=== PATIENT | male | born 1975 | race Caucasian/White ===

== ENCOUNTER 2017-02-12 13:24 | Inpatient (IN) | payer BC, OTHER ==
[2017-02-12] VITALS (8 sets, daily range): BP systolic 129–158; BP diastolic 93–100
[~2017-02-12] VITALS: Ht 172.7 cm; Wt 72.6 kg
--- NOTE | ~2017-02-12 | H ---
[facility] [place] [address] HISTORY AND PHYSICAL Name: JE EVANS Room #: 241-P ADM IN M.R.#: [id number] Admission: 02/12/17 Attend Phys: Kait Gil MD Discharge: Date of : 79 Report #: [id number] THIS REPORT FOR: //name// CC: Kait Kebede REASON FOR PRESENTATION: Abdominal pain. HISTORY OF PRESENT ILLNESS: This is a 41-year-old with past medical history of alcohol abuse. He was admitted about a month ago for the same symptoms. He presented with abdominal pain, mid epigastric, radiating to the back. This started a few days ago and started to worsen in the last few hours before his presentation to the emergency room. No fever or chills associated with the abdominal pain. He did have some nausea. No vomiting. No hematochezia, no melena. No relieving factors. He admitted to excessive alcohol drinking in the last few weeks. Specifically, he mentioned that he has been taking about half a pint of amanda every day. Reviewing the patient's medical history, it does look like that he was admitted with all complications related to alcohol abuse including cholecystitis, pancreatitis with leukopenia. He had an extensive GI workup with EGD and the liver biopsy. The liver biopsy was consistent with what was described in the history as fatty liver with steatohepatitis. He also had an EGD done during his previous admission and this revealed severe esophagitis. Of note, this is the fact that the patient had a very high blood sugar in the last admission. He was managed appropriately with insulin; however, his blood sugar normalized and he did not require any further insulin after his dismissal. PAST MEDICAL HISTORY: 1. Steatohepatitis. 2. Alcohol abuse. 3. Pancreatitis. 4. Leukopenia related to alcohol abuse. 5. Post-appendectomy. 6. Hyperlipidemia. 7. Severe esophagitis and gastritis. 8. Hypertriglyceridemia. 9. History of thrombocytopenia. MEDICATIONS: 1. Levofloxacin. 2. Folic acid. 3. Pantoprazole. ALLERGIES: MEPERIDINE. 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 He abuses half a pint of amanda every day. [facility] [address] [place] [address] HISTORY AND PHYSICAL Name: JE EVANS Room #: [facility]P [facility] IN ..#: [id number] Admission: 02/12/17 Attend Phys: Kait Gil MD Discharge: Date of : 79 Report #: [id number] FAMILY HISTORY: No known chronic medical problems in the family. REVIEW OF SYSTEMS: GENERAL: Significant for weakness. GASTROINTESTINAL: Significant for abdominal pain, nausea, loss of appetite. PULMONARY: No cough or hemoptysis. CARDIOVASCULAR: No chest pain or palpitation. GENITOURINARY: No frequency, no urgency. MUSCULOSKELETAL: Occasional back pain. NEUROLOGICAL: No headache, no dizziness, no seizures. PHYSICAL EXAMINATION: GENERAL: The patient was alert, oriented. VITAL SIGNS: Pulse rate was 114, temperature was 37.3. HEAD AND NECK: Dry mucous membrane. CHEST: Decreased air entry bilaterally. CARDIOVASCULAR: Tachycardic. ABDOMEN: Tenderness the epigastric area. LOWER EXTREMITIES: No edema. LABORATORY VALUES: Reviewed. He has a widened anion gap. AST is elevated at 120, ALT is elevated at 359. Lipase is within normal. CBC showed a hemoconcentrated sample. Blood gas was consistent with respiratory alkalosis and anion gap metabolic acidosis. Serum alcohol level was elevated at 185. Serum acetone and beta hydroxybutyrate are pending. Abdomen and pelvic CT were reviewed, those showed the diffuse fatty infiltration of the liver. ASSESSMENT, IMPRESSION, PLAN: 1. Alcohol abuse. 2. Abdominal pain. 3. Severe esophagitis in the past. 4. Widened anion gap acidosis. 5. Respiratory alkalosis. 6. Remote history of pancreatitis, fatty liver, esophagitis. 7. Admission to the ICU. 8. Alcohol withdrawal protocol. 9. IV fluid. 10. Routine ICU care. 11. Continue to senior counsel about alcohol abuse. 12. Electrolyte protocol. 13. Pain control. 14. DTs precautions. 15. Watch his abdominal pain for now. He seems to be tender in the epigastric area; however, his lipase and his CT were nonsignificant. He had an EGD done in the past and there was a mention of severe esophagitis and gastritis. We will place on PPI and sucralfate for now. [address] [address] HISTORY AND PHYSICAL Name: JE EVANS Room #: 241-P [facility] IN M.R.#: [id number] Admission: 02/12/17 Attend Phys: Kait Gil MD Discharge: Date of : 79 Report #: [id number] 16. If needed, we will obtain a repeat EGD by the gastroenterology team to evaluate the healing process as there was a suspicion of a viral entity causing those changes in his stomach in the last admission. <ELECTRONICALLY SIGNED> By: Kait Gil MD 02/13/17 1223 1541 2107 Kait Gil MD /nt
--- NOTE | ~2017-02-12 | HC ---
[facility] [place] [address] CONSULTATION Name: JE EVANS Room #: 454-P ADM IN M.R.#: [id number] Admission: 02/12/17 Attend Phys: Kait Gil MD Discharge: Date of : 79 Report #: [id number] THIS REPORT FOR: //name// CC: MICH Kebede REASON FOR CONSULTATION: The patient is a 41-year-old male with history of alcohol abuse and severe abdominal pain. HISTORY OF PRESENT ILLNESS: This patient had a previous admission to [facility] earlier this year. He was seen by my associate, Dr. Gustavo Zepeda. Actually, he has had 2 previous admissions already this year. Both admissions were for abdominal pain. He admittedly has an alcohol problem. Not many people know about his alcohol issue, but he is willing to make changes at this point in time. In summary, he has had bouts of abdominal pain. He has had previous CAT scans. He has had an elevated lipase, which may or may not be related to pancreatitis. He all also has had a liver biopsy and elevated ferritin. Pattern was suggestive of a hemochromatosis; however, genetic markers were not diagnostic for hemochromatosis. 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 However, he does not have the mutations consistent with hereditary hemochromatosis. Also, earlier this year, he had an upper endoscopy and was found to have severe esophagitis. Biopsies were nondiagnostic and a viral etiology is not identified. Biopsies negative for celiac disease and H. pylori as well. The patient reported he had been doing well once again on this occasion. However, 2 days ago, he started with severe abdominal pain. He freely admits that he has been drinking too much. His alcohol of choice is amanda. He has developed a mid to upper abdominal pain. The pain was sharp and burning in character. Over the ensuing day or two, the pain greatly intensified. He had some nausea and dry heaves, but not have any vomiting. He did not have any rectal bleeding. He does not report any fever or chills. Due to the severe pain, he presented to [facility] yesterday where he was seen and evaluated. He was found to have a lactic acid of 8. A CT scan was done, which revealed fatty infiltrates of liver. There was concern for ischemic gut, but acute findings were not noted in the abdomen. It is noted that the CAT scan was done with IV contrast. Overnight, his pain is improved, but not resolved. His lactic acid this morning is normal. The patient also reported yesterday here in the hospital that he had a brown, nonbloody stool. PAST MEDICAL HISTORY: He has steatohepatitis noted by biopsy, history of [facility] [address] [place] [address] CONSULTATION Name: JE EVANS Room #: 454-P [facility] IN M.R.#: [id number] Admission: 02/12/17 Attend Phys: Kait Gil MD Discharge: Date of : 79 Report #: [id number] alcohol abuse as noted. Records indicate he has had pancreatitis, but review of labs earlier this year did not reveal a striking elevation of lipase. The highest lipase was 1372. On this admission, it was normal. He has also had leukopenia in the past and once again he is leukopenic, thought to be related to alcohol. He has had hyperlipidemia. He has had esophagitis. He has had hypertriglyceridemia. He also has had thrombocytopenia and platelets are 99,000 this admission. PAST SURGICAL HISTORY: Appendectomy. USUAL HOME MEDICINES: He takes alprazolam 0.25 mg as needed for anxiety, folic acid 1 mg daily, hyoscyamine 0.125 mg daily, Levaquin 750 mg daily for 7 days and he is no longer using that, multivitamins, ondansetron 4 mg every 8 hours as needed for nausea; oxycodone 5 mg every 6 hours, he was given only 20 tablets. He uses omeprazole intermittently. He also takes ranitidine and sucralfate. He takes fenofibrate and atorvastatin for his lipidemia. In addition to the Xanax, he also uses citalopram. He does use nonsteroidals occasionally, but not on a daily basis. FAMILY HISTORY: No family history of colon cancer, ulcer disease or liver disease. SOCIAL HISTORY: He is single, lives in his own home. 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 He smokes half pack of cigarettes per day. He drinks amanda daily. REVIEW OF SYSTEMS: GENERAL: No change of weight, fever or chills. CENTRAL NERVOUS SYSTEM: No focal weakness, numbness, loss of consciousness, seizure or strokes. ENT: No change in vision or hearing or sores in the mouth. PULMONARY: Although he is a smoker, no cough, pneumonia or tuberculosis. CARDIOVASCULAR: No chest pain, chest tightness, or known heart disease. GASTROINTESTINAL: Esophagitis and gastritis, questionable pancreatitis, steatohepatitis, no diarrhea or rectal bleeding or constipation. GENITOURINARY: Without dysuria, pyuria. MUSCULOSKELETAL: No arthralgias or myalgias. SKIN: Without rashes. PSYCHIATRIC: He has been treated for anxiety. He has been treated by family practitioner, he has not seen a psychiatrist. HEMATOLOGIC: No bleeding, bruising, or malignancy, although he has had thrombocytopenia and leukopenia probably related to alcohol. PHYSICAL EXAMINATION: GENERAL: Well-developed, well-nourished male who is awake, alert and oriented, no acute distress. He is very tentative and seemed to be interested in improving his situation. [facility] [address] [place] [address] CONSULTATION Name: JE EVANS Room #: 454-P [facility] IN .R.#: [id number] Admission: 02/12/17 Attend Phys: Kait Gil MD Discharge: Date of : 79 Report #: [id number] VITAL SIGNS: This morning blood pressure 139/89, pulse rate of 80. HEENT: He is anicteric. Pupils equal and round. Oropharynx clear. NECK: Supple. CHEST: Clear. HEART: Regular rate and rhythm, normal S1 and S2. ABDOMEN: Normal bowel sounds, soft. Moderate tenderness diffusely across the upper abdomen. No rebound or rigidity. RECTAL: Not done. EXTREMITIES: Without cyanosis, clubbing, edema. NEUROLOGIC: Oriented to person, place and time. Moves all 4 extremities well. ASSESSMENT: 1. Acute abdominal pain, improved. 2. Alcohol abuse. 3. Esophagitis. 4. Lactic acidosis, improved. 5. Hyperlipidemia. 6. Anxiety. RECOMMENDATIONS: 1. Continue to monitor abdominal pain. He has been seen by Dr. Mahajan and does not have an acute abdomen at this point in time. 2. PPI twice daily. 3. Upper endoscopy at some point. The patient is actually planned to have a followup endoscopy by Dr. Zepeda to ensure healing of his esophagitis. We will see how he does this admission. If he does not have improvement of difficulty, we may proceed this admission, although the interval is shorter than initially recommended. 4. multimedia services coordinator with regards to dealing with his alcohol abuse, in particular getting him involved in structured program such as AA. 5. Agree with clear liquids to start today. 6. Monitor liver function studies. 7. Monitor for withdrawal. By: 0825 [id number] Demarcus Ferris MD /nt
--- NOTE | ~2017-02-12 | HC ---
[facility] [place] [address] CONSULTATION Name: JE EVANS Room #: 241-P ADM IN M.R.#: [id number] Admission: 02/12/17 Attend Phys: Kait Gil MD Discharge: Date of : 79 Report #: [id number] THIS REPORT FOR: //name// CC: Kait Kebede DATE OF SERVICE: 02/12/2017 ATTENDING PHYSICIAN: Dr. Gil. CONSULTING PHYSICIAN: Donavan Mahajan MD REASON FOR CONSULTATION: Abdominal pain, elevated lactate. HISTORY OF PRESENT ILLNESS: This is a 41-year-old alcoholic male patient who was seen in the [facility] with epigastric abdominal pain and nausea. His pain has been ongoing over the past couple days, relatively unchanged. He had minimal relief with the IV pain medication that was given to him. The patient was admitted to the hospital approximately 1 month ago and was felt to have esophagitis, possibly viral. He underwent a liver biopsy and was found to have steatohepatitis. He admits to drinking a half pint of amanda daily and he states that over the past several days, his alcohol use has been more than usual. He has also not taken in much food over the past few days. His lactate was 6.9 initially. After receiving 2 liters of IV fluids, the patient's lactate was elevated at 8.0. With his complaints, I have been asked to see the patient for further evaluation and treatment. PAST MEDICAL HISTORY: Significant for hypercholesterolemia and esophagitis, gastritis. PAST SURGICAL HISTORY: Includes laparoscopic appendectomy. HOME MEDICATIONS: Lipitor, fenofibrate, Xanax, Zantac, Carafate, Levsin. ALLERGIES: DEMEROL. FAMILY HISTORY: Significant for diabetes mellitus in both his grandmothers. SOCIAL HISTORY: The patient smokes half a pack of cigarettes daily over the past 25 years and admits to drinking 1 half pint of amanda daily over the past year. Prior to that, his alcohol use was not as heavy. 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 REVIEW OF SYSTEMS: As per history of present illness. In addition: GENERAL: The patient does report a 20-pound weight loss over the past year. Denies fever or chills. [facility] [address] [place] [address] CONSULTATION Name: JE EVANS [facility] Room #: 241-P [facility] IN .R.#: [id number] Admission: 02/12/17 Attend Phys: Kait Gil MD Discharge: Date of : 79 Report #: [id number] HEENT: Denies changes in taste, vision, hearing, or smell. RESPIRATORY: Denies shortness of breath, COPD or asthma. CARDIOVASCULAR: Denies chest pain or palpitations. GASTROINTESTINAL: As per history of present illness. Denies bright red blood per rectum. GENITOURINARY: Denies dysuria, urgency, increased urinary frequency or hematuria. MUSCULOSKELETAL: Denies myalgia, arthralgia or arthritis. NEUROLOGIC: Denies headaches, numbness or tingling. PSYCHIATRIC: Denies depression, anxiety or suicidal ideations. SKIN AND INTEGUMENTARY: Denies new skin lesions, rashes, or moles. ENDOCRINE: Denies polydipsia, polyuria, heat or cold intolerance. HEMATOLOGIC: Denies easy bleeding, bruising or anemia. All other review of systems is negative. PHYSICAL EXAMINATION: VITAL SIGNS: Temperature 99.2, blood pressure 140/94, pulse 100, respirations 14. Height 5 feet 8 inches and weight 160 pounds. GENERAL: This is a 41-year-old male patient who appears to be in mild distress (his appearance changed after discussion - see below). HEENT: Atraumatic, normocephalic with moist mucosal membranes. He has no scleral icterus. NECK: Supple, no appreciable lymphadenopathy. Trachea is midline. CHEST: Clear bilaterally. No crackles or wheezes. CARDIOVASCULAR: Regular rate and rhythm, S1, S2. ABDOMEN: Tender to palpation in the lower epigastrium/infraumbilical area. He otherwise has diffuse abdominal pain with no rebound and mild voluntary guarding. He had no palpable masses, no appreciable hernias and mild hepatomegaly. GENITOURINARY: Normal external male genitalia. EXTREMITIES: No clubbing, cyanosis or edema. NEUROLOGIC: Cranial nerves 2-12 grossly intact. PSYCHIATRIC: Anxious but answering questions appropriately. SKIN AND INTEGUMENTARY: No acute inflammatory changes, rashes, lesions or jaundice is present. LABORATORY DATA: CBC shows a white blood cell count 4.5, hemoglobin 15.2, hematocrit 43.6 and platelets 158. His electrolytes showed a sodium 139, potassium 3.7, chloride 97, CO2 20, BUN 11, creatinine 0.9 and glucose 102. His AST and ALT were elevated at 120 and 359 respectively. Bilirubin was normal at 1.0 and alkaline phosphatase was mildly elevated at 135. His lipase was normal at 141. His alcohol level was 185 (normal is less than 10 mg/dL). Ammonia level was in the normal arrange. Lactates were elevated initially at 6.9 and most recently at 8.0 at 6:45 this evening. [facility] [address] [place] [address] CONSULTATION Name: JE EVANS Room #: 241-P [facility] IN [facility].#: [id number] Admission: 02/12/17 Attend Phys: Kait Gil MD Discharge: Date of : 79 Report #: [id number] RADIOLOGIC STUDIES: CT of the abdomen and pelvis showed diffuse fatty infiltration of the liver with no evidence for pancreatitis or focal bowel inflammatory changes, no free air, abscess or acute findings. IMPRESSION AND PLAN: This is a 41-year-old alcoholic male patient with a history of hypercholesterolemia, esophagitis/gastritis (secondary to his alcoholism) and steatohepatitis. He has had a severe, constant abdominal pain over the past 2 days and an elevated lactate that did not improve with hydration. His white blood cell count was normal and CT showed no acute findings. His exam was difficult as he may be guarding from either pain or drug-seeking behavior. In addition, his lactate is an unreliable test as it may be elevated due to his inability to process (secondary to biopsy proven steatohepatitis). We discussed the pathophysiology and natural history of acute bowel/mesenteric ischemia and peptic ulcer disease as well as the treatment alternatives and potential surgical options for both. Ischemic bowel must be ruled out. I will plan to redraw a lactate level and reexamine the patient, following closely. It should be noted that the patient's attitude seemed to change after my rick discussion with him regarding his alcohol use and potential need for surgery and bowel resection. He seemed to exhibit less discomfort and pain. I sincerely appreciate the opportunity to participate in the care of this patient and I will leave further recommendations and orders in the electronic medical record as appropriate. Thank you very much. I will follow along closely. <ELECTRONICALLY SIGNED> By: Donavan Mahajan MD, FACS 02/13/17 1018 2105 0030 Donavan Mahajan MD, FACS /nt
--- NOTE | ~2017-02-12 | EKG ---
[address] [address] ELECTROCARDIOGRAM REPORT Name: NATHANJE Walker RAYMUNDO Room #: 454-P ADM IN M.R.#: [id number] Admission: 02/12/17 Attend Phys: Kait Gil MD Discharge: Date of : 79 Report #: [id number] THIS REPORT FOR: //name// [facility] ED Test Date: 2017-02-12 Test Time: 14:16:16 Pat Name: JE EVANS Department: Room: [facility] Gender: M Neuropsychiatric Aide: Ancelmo SHETTY : 1975 Requested By: Chencho Killian Order Number: [id number] MD: Gary Fernandez Measurements Intervals [place] Rate: 95 P: 79 DE: 133 QRS: 68 QRSD: 96 T: 51 QT: 362 QTc: 455 Interpretive Statements Sinus rhythm Left atrial enlargement Electronically Signed On 02-13-2017 22:24:38 CDT by Gary Fernandez [email or web address] <ELECTRONICALLY SIGNED> By: Gary Fernandez MD 02/13/17 2224 1416 1416 MD VIRGINIA Hussein
[~2017-02-12 13:24] MED LIST: CARAFATE 1 GM TA1 G1 PO; FENOFIBRATE200 MG PO; FOLIC ACID 1 MG1 MG PO; HYDROCODONE-AP1 EAC6 PO; HYOSCYAMINE0.125 M1 SL; LEVAQUIN 750 M750 MG PO; LIPITOR10 MG PO; MULTIVITAMINS1 EAC7 PO; ONDANSETRON HCL4 M2 PO; OXYCODONE HCL 55 MG PO; PROTONIX40 M1 PO; ROXICODONE5 M2 PO; VALACYCLOVIR500 MG PO; XANAX 0.25 MG0.25 MG PO; ZANTAC 150MG T150 MG PO
[2017-02-12 13:49] LABS: HEMATOCRIT 43.6 % (42.0-52.0); HEMOGLOBIN 15.2 gm/dL (14.0-18.0); MCH 31.1 pg (26.0-34.0); MCHC 34.9 g/dL (28.0-37.0); MCV 89.1 fL (80.0-100.0); PLATELET COUNT 158 thou/uL (150-400); WBC 4.5 thou/uL (4.0-11.0)
[2017-02-12 13:53] LABS: CALCIUM 8.2 mg/dL (8.5-10.1); CREATININE 0.9 mg/dL (0.7-1.3); POTASSIUM 3.7 mmol/L (3.5-5.1)
[2017-02-12 13:54] LABS: MANUAL DIFF YES
[2017-02-12 13:58] LABS: ALBUMIN 4.4 g/dL (3.4-5.0); TOTAL PROTEIN 7.2 g/dL (6.4-8.2)
[2017-02-12 14:17] LABS: ABSOLUTE NEUTROPHILS 1.4 thou/uL (1.4-8.2); TOTAL CELL COUNT 100
[2017-02-12 14:32] LABS: ABG SAMPLE TYPE VENOUS; BE(vivo) -1.9 mmol/L (-2 to +3); HCO3 19.1 mmol/L (22.0-26.0); O2(CT) 19.6 mL/dL (15.0-23.0); O2Hb VENOUS 93.9 (65.0-85.0); PCO2 VENOUS 24.1 mmHg (41.0-51.0); PO2 VENOUS 121.7 mmHg (35.0-45.0); sO2 VENOUS 98.8 % (65.0-85.0); tCO2 19.8 mmol/L (24.0-30.0)
[2017-02-12 14:33] LABS: LACTATE 6.91 mmol/L (0.5-2.0); STICK SITE LINE
[2017-02-12 15:03] LABS: URINE BILIRUBIN NEGATIVE (Negative); URINE BLOOD 1+ (Negative); URINE COLOR YELLOW; URINE GLUCOSE-RANDOM* NEGATIVE (Negative); URINE KETONES TRACE (Negative); URINE LEUKOCYTES-REFLEX NEGATIVE (Negative); URINE PROTEIN (DIPSTICK) 1+ (Negative); URINE UROBILINOGEN 0.2 E.U./dl (0.2-1.0)
[2017-02-12 15:09] LABS: CASTS None Seen /LPF (None Seen); SQUAMOUS None Seen /LPF (0-3); URINE RBC 3-10 Few /HPF (0-2); URINE WBC-REFLEX 0-5 Rare /HPF (0-5)
[2017-02-12 15:10] LABS: CRYSTALS None Seen /LPF (None Seen)
[2017-02-12 16:13] LABS: AMP/METHAMP Negative (Negative); BARBITURATES Negative (Negative); BENZODIAZEPINES Negative (Negative); COCAINE Negative (Negative); METHADONE Negative (Negative); OPIATES POSITIVE (Negative); PCP Negative (Negative)
[2017-02-12 16:14] LABS: THC Negative (Negative)
[2017-02-12 16:45] LABS: FOLIC ACID 10.2 ng/mL (8.6-58.9)
[2017-02-12 19:54] LABS: APTT 27.5 Seconds (24.5-32.8); INR 1.1; PROTIME 11.4 Seconds (9.3-11.4)
[2017-02-13] VITALS (18 sets, daily range): BP systolic 121–169; BP diastolic 79–111
[2017-02-13 05:54] LABS: MAGNESIUM 1.4 mg/dL (1.8-2.4); PHOSPHORUS 2.4 mg/dL (2.5-4.9)
[2017-02-13 07:03] LABS: HEMATOCRIT 39.1 % (42.0-52.0); HEMOGLOBIN 13.3 gm/dL (14.0-18.0); MCH 30.5 pg (26.0-34.0); MCHC 33.9 g/dL (28.0-37.0); RBC 4.35 mil/uL (4.50-6.00); RDW 14.1 % (10.5-14.5); WBC 3.4 thou/uL (4.0-11.0)
[2017-02-13 07:12] LABS: CALCIUM 7.6 mg/dL (8.5-10.1); CREATININE 0.7 mg/dL (0.7-1.3)
[2017-02-13 07:17] LABS: ALBUMIN 3.6 g/dL (3.4-5.0); TOTAL BILIRUBIN 1.5 mg/dL (<0.1-1.0); TOTAL PROTEIN 6.3 g/dL (6.4-8.2)
[2017-02-13 07:26] LABS: POTASSIUM 3.1 mmol/L (3.5-5.1)
[2017-02-13 08:23] LABS: ABG SAMPLE TYPE ARTERIAL; BE(vivo) 1.9 mmol/L (-2 to +3); HCO3 25.9 mmol/L (22.0-26.0); LACTATE 1.16 mmol/L (0.5-2.0); O2(CT) 18.6 mL/dL (15.0-23.0); O2Hb 94.4 % (92.0-98.0); PCO2 38.4 mmHg (35.0-45.0); PO2 79.8 mmHg (80.0-100.0); STICK SITE R.RADIAL; pH 7.446 (7.360-7.450); sO2 96.3 % (92.0-98.0)
[2017-02-14 03:59] VITALS: BP 133/94
[2017-02-14 06:22] LABS: HEMATOCRIT 38.7 % (42.0-52.0); HEMOGLOBIN 13.3 gm/dL (14.0-18.0); MCH 30.8 pg (26.0-34.0); MCHC 34.4 g/dL (28.0-37.0); MCV 89.6 fL (80.0-100.0); RBC 4.31 mil/uL (4.50-6.00); RDW 14.4 % (10.5-14.5); WBC 3.3 thou/uL (4.0-11.0)
[2017-02-14 06:32] LABS: ALBUMIN 3.7 g/dL (3.4-5.0); CALCIUM 8.8 mg/dL (8.5-10.1); CREATININE 0.8 mg/dL (0.7-1.3); POTASSIUM 3.2 mmol/L (3.5-5.1); TOTAL BILIRUBIN 1.3 mg/dL (<0.1-1.0); TOTAL PROTEIN 6.5 g/dL (6.4-8.2)
[2017-02-14 07:22] VITALS: BP 135/96
[2017-02-14 11:15] VITALS: BP 125/90
[2017-02-14 15:36] VITALS: BP 131/91
[2017-02-14 19:45] VITALS: BP 149/96
[2017-02-15 03:55] VITALS: BP 138/97
[2017-02-15 06:09] LABS: ABSOLUTE NEUTROPHILS 1.5 thou/uL (1.4-8.2); BASOPHILS 0.7 % (0.0-2.0); EOSINOPHILS 10.2 % (0.0-3.0); HEMATOCRIT 37.8 % (42.0-52.0); HEMOGLOBIN 12.7 gm/dL (14.0-18.0); LYMPHOCYTES 35.8 % (24.0-44.0); MCH 30.7 pg (26.0-34.0); MCHC 33.7 g/dL (28.0-37.0); MCV 90.9 fL (80.0-100.0); MONOCYTES 5.6 % (1.0-8.0); PLATELET COUNT 102 thou/uL (150-400); POLYS 47.7 % (36.0-66.0); RBC 4.15 mil/uL (4.50-6.00); RDW 14.5 % (10.5-14.5); WBC 3.1 thou/uL (4.0-11.0)
[2017-02-15 06:16] LABS: MANUAL DIFF NO
[2017-02-15 06:24] LABS: ALBUMIN 3.5 g/dL (3.4-5.0); CALCIUM 8.7 mg/dL (8.5-10.1); CREATININE 0.8 mg/dL (0.7-1.3); POTASSIUM 3.3 mmol/L (3.5-5.1); TOTAL BILIRUBIN 1.2 mg/dL (<0.1-1.0); TOTAL PROTEIN 6.5 g/dL (6.4-8.2)
[2017-02-15 07:24] VITALS: BP 139/97
[2017-02-15 12:50] VITALS: BP 136/97
[2017-02-15 16:50] VITALS: BP 132/85
[2017-02-15 20:27] VITALS: BP 154/108
[2017-02-16 04:26] VITALS: BP 123/89
[2017-02-16 05:52] LABS: EOSINOPHILS 7.9 % (0.0-3.0); HEMATOCRIT 36.4 % (42.0-52.0); HEMOGLOBIN 12.4 gm/dL (14.0-18.0); LYMPHOCYTES 30.3 % (24.0-44.0); MCH 30.8 pg (26.0-34.0); MCV 90.7 fL (80.0-100.0); MONOCYTES 5.9 % (1.0-8.0); PLATELET COUNT 121 thou/uL (150-400); POLYS 54.9 % (36.0-66.0); RBC 4.01 mil/uL (4.50-6.00); RDW 14.1 % (10.5-14.5); WBC 3.6 thou/uL (4.0-11.0)
[2017-02-16 06:00] LABS: MANUAL DIFF NO
[2017-02-16 06:09] LABS: ALBUMIN 3.5 g/dL (3.4-5.0); CALCIUM 8.8 mg/dL (8.5-10.1); CREATININE 0.8 mg/dL (0.7-1.3); MAGNESIUM 1.7 mg/dL (1.8-2.4); POTASSIUM 3.7 mmol/L (3.5-5.1); TOTAL PROTEIN 6.4 g/dL (6.4-8.2)
[2017-02-16 07:38] VITALS: BP 123/82
[2017-02-16] MEDS ORDERED: VITAMIN B-1100 M1 PO (09:00)
[2017-02-16] MEDS ORDERED: XANAX 0.25 MG0.25 MG PO (09:00)
[2017-02-16] MEDS ORDERED: ROXICODONE5 M2 PO (09:00)
[2017-02-16] MEDS ORDERED: ONDANSETRON HCL4 M2 PO (09:00)
[2017-02-16] MEDS ORDERED: PROTONIX40 M1 PO (09:00)
[2017-02-16 11:01] VITALS: BP 134/89
[2017-02-16 11:18] VITALS: BP 134/89
== END 2017-02-16 14:04 | disposition home or self-care (01) | DRG 392 ==
LOC: ER 13:24 → 4W 15:24 → EROBS 15:24 → ICU 17:29 → 4W 02-13 15:02
PROVIDERS: Hospitalist; Nurse Practitioner Family; Physician Assistant; Surgery
DX: K20.9 Esophagitis, unspecified (principal); E87.2 Acidosis; E87.3 Alkalosis; K70.10 Alcoholic hepatitis without ascites; K29.20 Alcoholic gastritis without bleeding; E78.1 Pure hyperglyceridemia; K75.81 Nonalcoholic steatohepatitis (NASH); E88.89 Other specified metabolic disorders; F41.9 Anxiety disorder, unspecified; E78.5 Hyperlipidemia, unspecified; E78.00 Pure hypercholesterolemia, unspecified; F10.10 Alcohol abuse, uncomplicated; F17.210 Nicotine dependence, cigarettes, uncomplicated; D69.6 Thrombocytopenia, unspecified; E87.6 Hypokalemia; Y90.6 Blood alcohol level of 120-199 mg/100 ml; Z87.11 Personal history of peptic ulcer disease; Z71.41 Alcohol abuse counseling and surveillance of alcoholic; Z90.49 Acquired absence of other specified parts of digestive tract; Z88.8 Allergy status to other drugs, medicaments and biological substances; Z79.899 Other long term (current) drug therapy; Z83.3 Family history of diabetes mellitus
CPT/HCPCS: 10045; 10203

== ENCOUNTER 2017-02-28 19:58 | Inpatient (IN) | payer BC, OTHER ==
[~2017-02-28] VITALS: Ht 172.7 cm; Wt 75.7 kg
--- NOTE | ~2017-02-28 | EKG ---
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
[2017-02-28 19:58] VITALS: BP 124/72
[~2017-02-28 19:58] MED LIST changes: +VITAMIN B-1100 M1 PO
[2017-02-28] MEDS ORDERED: LIPITOR10 MG PO (20:03)
[2017-02-28] MEDS ORDERED: FENOFIBRATE160 MG PO (20:03)
[2017-02-28 20:22] LABS: ABSOLUTE NEUTROPHILS 5.6 thou/uL (1.4-8.2); BASOPHILS 0.9 % (0.0-2.0); EOSINOPHILS 0.4 % (0.0-3.0); HEMATOCRIT 44.4 % (42.0-52.0); HEMOGLOBIN 14.7 gm/dL (14.0-18.0); LYMPHOCYTES 17.1 % (24.0-44.0); MCH 30.9 pg (26.0-34.0); MCHC 33.1 g/dL (28.0-37.0); MCV 93.4 fL (80.0-100.0); MONOCYTES 3.5 % (1.0-8.0); PLATELET COUNT 373 thou/uL (150-400); POLYS 78.1 % (36.0-66.0); RBC 4.76 mil/uL (4.50-6.00); RDW 14.5 % (10.5-14.5); WBC 7.2 thou/uL (4.0-11.0)
[2017-02-28 20:23] LABS: MANUAL DIFF NO
[2017-02-28 20:38] LABS: ALBUMIN 4.4 g/dL (3.4-5.0); CALCIUM 8.8 mg/dL (8.5-10.1); CREATININE 0.8 mg/dL (0.7-1.3); TOTAL BILIRUBIN 0.3 mg/dL (<0.1-1.0); TOTAL PROTEIN 7.5 g/dL (6.4-8.2)
[2017-02-28 20:47] LABS: POTASSIUM 3.8 mmol/L (3.5-5.1)
[2017-02-28] MEDS ORDERED: CARAFATE 1 GM TA1 G1 PO (21:20)
[2017-02-28] MEDS ORDERED: ZOFRAN4 MG PO (21:20)
[2017-02-28] MEDS ORDERED: PANTOPRAZOLE SO40 M1 PO (21:20)
[2017-02-28 21:53] LABS: URINE BILIRUBIN NEGATIVE (Negative); URINE BLOOD TRACE (Negative); URINE COLOR YELLOW; URINE GLUCOSE-RANDOM* NEGATIVE (Negative); URINE KETONES 1+ (Negative); URINE LEUKOCYTES-REFLEX NEGATIVE (Negative); URINE PROTEIN (DIPSTICK) NEGATIVE (Negative); URINE SPECIFIC GRAVITY >= 1.030 (1.003-1.035); URINE UROBILINOGEN 0.2 E.U./dl (0.2-1.0)
[2017-02-28 22:00] LABS: MAGNESIUM 1.8 mg/dL (1.8-2.4); PHOSPHORUS 4.9 mg/dL (2.5-4.9)
[2017-02-28 22:03] LABS: ABG SAMPLE TYPE ARTERIAL; BE(vivo) -16.6 mmol/L (-2 to +3); HCO3 9.6 mmol/L (22.0-26.0); O2(CT) 20.4 mL/dL (15.0-23.0); O2Hb 94.2 % (92.0-98.0); PCO2 25.2 mmHg (35.0-45.0); tCO2 10.4 mmol/L (24.0-30.0)
[2017-02-28 22:04] LABS: LACTATE 10.96 mmol/L (0.5-2.0); STICK SITE R.RADIAL; pH 7.199 (7.360-7.450)
[2017-02-28 22:25] VITALS: BP 121/83
[2017-02-28 22:41] VITALS: BP 136/74
[2017-02-28 23:00] VITALS: BP 136/71
[2017-02-28 23:30] VITALS: BP 135/76
[2017-03-01] VITALS (15 sets, daily range): BP systolic 117–146; BP diastolic 70–96
[2017-03-01 00:13] LABS: FOLIC ACID 15.5 ng/mL (8.6-58.9)
[2017-03-01 03:56] LABS: URINE BILIRUBIN NEGATIVE (Negative); URINE BLOOD TRACE (Negative); URINE COLOR YELLOW; URINE GLUCOSE-RANDOM* TRACE (Negative); URINE KETONES 2+ (Negative); URINE NITRITE NEGATIVE (Negative); URINE PROTEIN (DIPSTICK) NEGATIVE (Negative); URINE SPECIFIC GRAVITY >= 1.030 (1.003-1.035); URINE UROBILINOGEN 0.2 E.U./dl (0.2-1.0)
[2017-03-01 04:04] LABS: AMP/METHAMP Negative (Negative); BARBITURATES Negative (Negative); BENZODIAZEPINES Negative (Negative); COCAINE Negative (Negative); METHADONE Negative (Negative); OPIATES POSITIVE (Negative); PCP Negative (Negative); THC Negative (Negative)
[2017-03-01 05:28] LABS: HEMATOCRIT 34.2 % (42.0-52.0); MCH 31.8 pg (26.0-34.0); MCV 90.7 fL (80.0-100.0); RBC 3.77 mil/uL (4.50-6.00); RDW 14.3 % (10.5-14.5); WBC 4.2 thou/uL (4.0-11.0)
[2017-03-01 05:45] LABS: CALCIUM 8.4 mg/dL (8.5-10.1); CREATININE 0.9 mg/dL (0.7-1.3)
[2017-03-01 10:11] LABS: FREE T4 0.81 ng/dL (0.82-1.77)
[2017-03-02 04:00] VITALS: BP 120/78
[2017-03-02 05:10] LABS: GLYCOHEMOGLOBIN (HGB A1C) 4.9 % (4.8-5.6)
[2017-03-02 07:13] LABS: ALBUMIN 3.5 g/dL (3.4-5.0); CALCIUM 8.9 mg/dL (8.5-10.1); CREATININE 0.9 mg/dL (0.7-1.3); PHOSPHORUS 3.6 mg/dL (2.5-4.9); POTASSIUM 3.6 mmol/L (3.5-5.1); TOTAL BILIRUBIN 0.8 mg/dL (<0.1-1.0); TOTAL PROTEIN 6.3 g/dL (6.4-8.2)
[2017-03-02 08:22] VITALS: BP 137/88
[2017-03-02] MEDS ORDERED: CARAFATE 1 GM TA1 G1 PO (08:58)
[2017-03-02] MEDS ORDERED: ZOFRAN4 MG PO (08:58)
[2017-03-02] MEDS ORDERED: PANTOPRAZOLE SO40 M1 PO (08:59)
[2017-03-02] MEDS ORDERED: XANAX 0.25 MG0.25 MG PO (08:59)
[2017-03-02 09:33] VITALS: BP 137/88
[2017-03-02 11:42] VITALS: BP 137/88
== END 2017-03-02 11:39 | disposition home or self-care (01) | DRG 433 ==
LOC: ER 19:58 → EROBS 21:16 → 3N 21:54 → EROBS 21:54 → ICU 21:54 → EROBS 21:54 → ICU 22:30 → 3N 03-01 14:23
PROVIDERS: Emergency Medicine; Hospitalist; Nurse Practitioner Acute Care
DX: K70.10 Alcoholic hepatitis without ascites (principal); E87.2 Acidosis; F41.9 Anxiety disorder, unspecified; E78.5 Hyperlipidemia, unspecified; F17.210 Nicotine dependence, cigarettes, uncomplicated; E83.119 Hemochromatosis, unspecified; Y90.0 Blood alcohol level of less than 20 mg/100 ml; E78.1 Pure hyperglyceridemia; F10.129 Alcohol abuse with intoxication, unspecified; E88.89 Other specified metabolic disorders; K76.0 Fatty (change of) liver, not elsewhere classified; R74.0 Nonspecific elevation of levels of transaminase and lactic acid dehydrogenase [LDH]; K75.81 Nonalcoholic steatohepatitis (NASH); T73.0XXA Starvation, initial encounter; X58.XXXA Exposure to other specified factors, initial encounter; Z79.899 Other long term (current) drug therapy; Z88.6 Allergy status to analgesic agent; Z90.49 Acquired absence of other specified parts of digestive tract; Z83.3 Family history of diabetes mellitus; Z71.6 Tobacco abuse counseling; Z71.41 Alcohol abuse counseling and surveillance of alcoholic
CPT/HCPCS: 10078; 10096

== ENCOUNTER 2017-03-08 03:17 | Inpatient (IN) | payer BC, OTHER ==
[~2017-03-08] VITALS: Ht 172.7 cm; Wt 71.2 kg
[~2017-03-08 03:17] MED LIST changes: +FENOFIBRATE160 MG PO; +PANTOPRAZOLE SO40 M1 PO; +ZOFRAN4 MG PO
[2017-03-08 03:18] VITALS: BP 163/111
[2017-03-08] MEDS ORDERED: OXYCODONE HCL 55 MG PO (03:24)
[2017-03-08] MEDS ORDERED: CELEXA10 MG PO (03:24)
[2017-03-08 04:26] LABS: ABSOLUTE NEUTROPHILS 13.3 thou/uL (1.4-8.2); BASOPHILS 0.5 % (0.0-2.0); HEMATOCRIT 46.4 % (42.0-52.0); HEMOGLOBIN 15.9 gm/dL (14.0-18.0); LYMPHOCYTES 11.5 % (24.0-44.0); MCH 30.8 pg (26.0-34.0); MCHC 34.1 g/dL (28.0-37.0); MCV 90.1 fL (80.0-100.0); MONOCYTES 3.2 % (1.0-8.0); PLATELET COUNT 340 thou/uL (150-400); POLYS 84.8 % (36.0-66.0); RBC 5.15 mil/uL (4.50-6.00); RDW 14.5 % (10.5-14.5); WBC 15.6 thou/uL (4.0-11.0)
[2017-03-08 04:30] LABS: MANUAL DIFF NO
[2017-03-08 04:31] LABS: CALCIUM 9.1 mg/dL (8.5-10.1); CREATININE 1.1 mg/dL (0.7-1.3); POTASSIUM 3.7 mmol/L (3.5-5.1)
[2017-03-08 04:35] LABS: ALBUMIN 4.6 g/dL (3.4-5.0); TOTAL BILIRUBIN 0.8 mg/dL (<0.1-1.0)
[2017-03-08 04:39] LABS: URINE BILIRUBIN NEGATIVE (Negative); URINE BLOOD NEGATIVE (Negative); URINE COLOR YELLOW; URINE GLUCOSE-RANDOM* NEGATIVE (Negative); URINE KETONES 1+ (Negative); URINE LEUKOCYTES-REFLEX NEGATIVE (Negative); URINE PROTEIN (DIPSTICK) NEGATIVE (Negative); URINE SPECIFIC GRAVITY 1.025 (1.003-1.035); URINE UROBILINOGEN 0.2 E.U./dl (0.2-1.0)
[2017-03-08 04:47] LABS: AMP/METHAMP Negative (Negative); BARBITURATES Negative (Negative); BENZODIAZEPINES POSITIVE (Negative); COCAINE Negative (Negative); METHADONE Negative (Negative); OPIATES Negative (Negative); PCP Negative (Negative); THC Negative (Negative)
[2017-03-08 05:03] LABS: ABG SAMPLE TYPE ARTERIAL; HCO3 11.6 mmol/L (22.0-26.0); O2(CT) 20.1 mL/dL (15.0-23.0); O2Hb 95.1 % (92.0-98.0); PCO2 22.5 mmHg (35.0-45.0); PO2 101.3 mmHg (80.0-100.0); pH 7.332 (7.360-7.450); sO2 97.4 % (92.0-98.0); tCO2 12.3 mmol/L (24.0-30.0)
[2017-03-08 05:04] LABS: LACTATE 9.32 mmol/L (0.5-2.0); STICK SITE R.RADIAL
[2017-03-08 05:47] VITALS: BP 130/75
[2017-03-08 06:28] VITALS: BP 121/77
[2017-03-08 12:23] VITALS: BP 149/94
[2017-03-08 14:01] LABS: ABG SAMPLE TYPE ARTERIAL; BE(vivo) 0.6 mmol/L (-2 to +3); LACTATE 1.19 mmol/L (0.5-2.0); O2(CT) 18.7 mL/dL (15.0-23.0); O2Hb 95.8 % (92.0-98.0); PCO2 34.7 mmHg (35.0-45.0); STICK SITE R.RADIAL; pH 7.457 (7.360-7.450); sO2 97.4 % (92.0-98.0)
[2017-03-08 14:56] LABS: ABSOLUTE NEUTROPHILS 4.5 thou/uL (1.4-8.2); BASOPHILS 0.9 % (0.0-2.0); EOSINOPHILS 0.7 % (0.0-3.0); HEMATOCRIT 37.5 % (42.0-52.0); LYMPHOCYTES 26.2 % (24.0-44.0); MCV 91.1 fL (80.0-100.0); MONOCYTES 10.3 % (1.0-8.0); POLYS 61.9 % (36.0-66.0); RBC 4.11 mil/uL (4.50-6.00); RDW 14.3 % (10.5-14.5); WBC 7.4 thou/uL (4.0-11.0)
[2017-03-08 14:57] LABS: HEMOGLOBIN 12.7 gm/dL (14.0-18.0); PLATELET COUNT 200 thou/uL (150-400)
[2017-03-08 15:01] LABS: MANUAL DIFF NO
[2017-03-08 15:06] LABS: CALCIUM 8.4 mg/dL (8.5-10.1); CREATININE 1.2 mg/dL (0.7-1.3); MAGNESIUM 1.7 mg/dL (1.8-2.4); POTASSIUM 3.2 mmol/L (3.5-5.1)
[2017-03-08 16:52] VITALS: BP 135/75
[2017-03-08 20:47] VITALS: BP 138/99
[2017-03-08 21:37] LABS: MAGNESIUM 1.7 mg/dL (1.8-2.4); POTASSIUM 3.7 mmol/L (3.5-5.1)
[2017-03-09 04:00] VITALS: BP 133/81
[2017-03-09 05:57] LABS: ABSOLUTE NEUTROPHILS 2.9 thou/uL (1.4-8.2); BASOPHILS 0.6 % (0.0-2.0); EOSINOPHILS 1.3 % (0.0-3.0); HEMATOCRIT 36.9 % (42.0-52.0); HEMOGLOBIN 12.4 gm/dL (14.0-18.0); LYMPHOCYTES 33.6 % (24.0-44.0); MANUAL DIFF NO; MCH 30.8 pg (26.0-34.0); MCHC 33.6 g/dL (28.0-37.0); MCV 91.7 fL (80.0-100.0); MONOCYTES 10.5 % (1.0-8.0); PLATELET COUNT 171 thou/uL (150-400); RBC 4.03 mil/uL (4.50-6.00); RDW 14.5 % (10.5-14.5); WBC 5.4 thou/uL (4.0-11.0)
[2017-03-09 06:13] LABS: ALBUMIN 3.3 g/dL (3.4-5.0); CALCIUM 8.5 mg/dL (8.5-10.1); CREATININE 0.9 mg/dL (0.7-1.3); MAGNESIUM 1.8 mg/dL (1.8-2.4); POTASSIUM 3.7 mmol/L (3.5-5.1); TOTAL BILIRUBIN 1.1 mg/dL (<0.1-1.0)
[2017-03-09 07:59] VITALS: BP 133/90
[2017-03-09 11:25] VITALS: BP 121/71
[2017-03-09 15:44] VITALS: BP 128/83
[2017-03-09 19:28] VITALS: BP 137/92
[2017-03-10 04:15] VITALS: BP 127/92
[2017-03-10 06:33] LABS: ALBUMIN 3.5 g/dL (3.4-5.0); CALCIUM 8.8 mg/dL (8.5-10.1); CREATININE 0.8 mg/dL (0.7-1.3); MAGNESIUM 1.9 mg/dL (1.8-2.4); POTASSIUM 3.2 mmol/L (3.5-5.1); TOTAL PROTEIN 6.6 g/dL (6.4-8.2)
[2017-03-10 07:24] VITALS: BP 153/106
[2017-03-10 11:21] VITALS: BP 126/91
[2017-03-10] MEDS ORDERED: PROTONIX40 M1 PO (12:06)
[2017-03-10] MEDS ORDERED: LIDOCAINE VISC100 M1 PO (12:06)
[2017-03-10] MEDS ORDERED: OXYCODONE HCL 55 MG PO (12:06)
[2017-03-10 12:57] VITALS: BP 126/91
[2017-03-11 03:18] LABS: GLYCOHEMOGLOBIN (HGB A1C) 4.7 % (4.8-5.6)
== END 2017-03-10 14:27 | disposition home or self-care (01) | DRG 897 ==
LOC: ER 03:17 → EROBS 05:19 → 4W 05:19
PROVIDERS: Emergency Medicine; Internal Medicine; Nurse Practitioner
DX: F10.129 Alcohol abuse with intoxication, unspecified (principal); E87.2 Acidosis; E86.0 Dehydration; K76.0 Fatty (change of) liver, not elsewhere classified; Y90.0 Blood alcohol level of less than 20 mg/100 ml; K20.9 Esophagitis, unspecified; K29.70 Gastritis, unspecified, without bleeding; R13.10 Dysphagia, unspecified; E78.1 Pure hyperglyceridemia; E83.119 Hemochromatosis, unspecified; F17.210 Nicotine dependence, cigarettes, uncomplicated; I10 Essential (primary) hypertension; R73.9 Hyperglycemia, unspecified; R79.89 Other specified abnormal findings of blood chemistry; D72.829 Elevated white blood cell count, unspecified; Z88.6 Allergy status to analgesic agent; Z90.49 Acquired absence of other specified parts of digestive tract; Z83.3 Family history of diabetes mellitus
CPT/HCPCS: 10045

== ENCOUNTER 2017-05-25 00:22 | Inpatient (IN) | payer BC, OTHER ==
[2017-05-25] VITALS (7 sets, daily range): BP systolic 137–185; BP diastolic 78–109
[~2017-05-25] VITALS: Ht 172.7 cm; Wt 85.5 kg
--- NOTE | ~2017-05-25 | EKG ---
[address] [address] ELECTROCARDIOGRAM REPORT Name: JE EVANS Room #: 211-P ADM IN M.R.#: [id number] Admission: 05/25/17 Attend Phys: Ben Bay MD Discharge: Date of : 79 Report #: [id number] THIS REPORT FOR: //name// 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 Lighting Fixtures: GAGE : 1975 Requested By: Juan C Ragland Order Number: [id number] MD: Naif Cordova Measurements Intervals [employer] Rate: 116 P: 71 ID: 128 QRS: 62 QRSD: 81 T: 47 QT: 309 QTc: 430 Interpretive Statements Sinus tachycardia Otherwise no significant abnormality Baseline wander in lead(s) V3 Compared to ECG 02/28/2017 23:10:19 No significant changes Electronically Signed On 05-25-2017 7:59:59 CDT by Naif Cordova [email or web address] <ELECTRONICALLY SIGNED> By: Naif Cordova MD, [facility] 05/25/17 0759 0048 0048 Naif Cordova MD, [facility] /EPI
[~2017-05-25 00:22] MED LIST changes: +CELEXA10 MG PO; +LIDOCAINE VISC100 M1 PO
[2017-05-25 00:39] LABS: ABSOLUTE NEUTROPHILS 13.6 thou/uL (1.4-8.2); BASOPHILS 0.8 % (0.0-2.0); EOSINOPHILS 0.1 % (0.0-3.0); HEMATOCRIT 49.2 % (42.0-52.0); HEMOGLOBIN 16.4 gm/dL (14.0-18.0); LYMPHOCYTES 9.8 % (24.0-44.0); MCH 30.3 pg (26.0-34.0); MCHC 33.3 g/dL (28.0-37.0); MONOCYTES 4.8 % (1.0-8.0); PLATELET COUNT 308 thou/uL (150-400); POLYS 84.5 % (36.0-66.0); RBC 5.41 mil/uL (4.50-6.00); RDW 13.5 % (10.5-14.5); WBC 16.1 thou/uL (4.0-11.0)
[2017-05-25 00:40] LABS: MANUAL DIFF NO
[2017-05-25 00:47] LABS: CALCIUM 9.7 mg/dL (8.5-10.1); CREATININE 1.1 mg/dL (0.7-1.3); POTASSIUM 4.1 mmol/L (3.5-5.1)
[2017-05-25 01:05] LABS: TOTAL BILIRUBIN 0.8 mg/dL (<0.1-1.0); TOTAL PROTEIN 8.2 g/dL (6.4-8.2)
[2017-05-25 01:06] LABS: ALBUMIN 4.4 g/dL (3.4-5.0)
[2017-05-25 11:12] LABS: % SATURATION 81 % (20-39); IRON 312 ug/dL (65-175); TIBC 386 ug/dL (250-450); UIBC 74 ug/dL
[2017-05-26 03:11] VITALS: BP 147/88
[2017-05-26 03:35] LABS: ABSOLUTE NEUTROPHILS 4.7 thou/uL (1.4-8.2); EOSINOPHILS 1.3 % (0.0-3.0); HEMATOCRIT 41.1 % (42.0-52.0); LYMPHOCYTES 23.4 % (24.0-44.0); MCHC 33.9 g/dL (28.0-37.0); MCV 88.4 fL (80.0-100.0); MONOCYTES 10.6 % (1.0-8.0); POLYS 63.7 % (36.0-66.0); RBC 4.65 mil/uL (4.50-6.00); WBC 7.3 thou/uL (4.0-11.0)
[2017-05-26 03:50] LABS: ALBUMIN 3.4 g/dL (3.4-5.0); CALCIUM 8.9 mg/dL (8.5-10.1); CREATININE 0.9 mg/dL (0.7-1.3); MAGNESIUM 1.6 mg/dL (1.8-2.4); POTASSIUM 3.8 mmol/L (3.5-5.1); TOTAL BILIRUBIN 1.1 mg/dL (<0.1-1.0); TOTAL PROTEIN 6.6 g/dL (6.4-8.2)
[2017-05-26 03:54] LABS: HEMOGLOBIN 13.9 gm/dL (14.0-18.0); PLATELET COUNT 192 thou/uL (150-400)
[2017-05-26 03:55] LABS: MANUAL DIFF NO
[2017-05-26 07:48] VITALS: BP 138/90
[2017-05-26 11:39] VITALS: BP 131/92
[2017-05-26 16:04] VITALS: BP 140/95
[2017-05-26 19:32] VITALS: BP 150/106
[2017-05-26 22:19] VITALS: BP 147/101
[2017-05-27 03:47] VITALS: BP 145/99
[2017-05-27 04:13] LABS: BASOPHILS 1.6 % (0.0-2.0); EOSINOPHILS 3.9 % (0.0-3.0); HEMATOCRIT 39.9 % (42.0-52.0); HEMOGLOBIN 14.2 gm/dL (14.0-18.0); LYMPHOCYTES 39.2 % (24.0-44.0); MCH 31.4 pg (26.0-34.0); MCHC 35.6 g/dL (28.0-37.0); MCV 88.1 fL (80.0-100.0); MONOCYTES 10.4 % (1.0-8.0); PLATELET COUNT 179 thou/uL (150-400); POLYS 44.9 % (36.0-66.0); RBC 4.53 mil/uL (4.50-6.00); RDW 13.2 % (10.5-14.5); WBC 4.5 thou/uL (4.0-11.0)
[2017-05-27 04:17] LABS: MANUAL DIFF NO
[2017-05-27 04:34] LABS: ALBUMIN 3.4 g/dL (3.4-5.0); CALCIUM 8.9 mg/dL (8.5-10.1); CREATININE 0.8 mg/dL (0.7-1.3); MAGNESIUM 1.7 mg/dL (1.8-2.4); POTASSIUM 3.3 mmol/L (3.5-5.1); TOTAL BILIRUBIN 0.8 mg/dL (<0.1-1.0); TOTAL PROTEIN 6.7 g/dL (6.4-8.2)
[2017-05-27 08:00] VITALS: BP 141/93
[2017-05-27 12:00] VITALS: BP 152/97
[2017-05-27] MEDS ORDERED: CARAFATE 1 GM TA1 G1 PO (13:18)
[2017-05-27] MEDS ORDERED: PROTONIX40 M1 PO (13:18)
[2017-05-27] MEDS ORDERED: VITAMIN B-1100 M1 PO (13:27)
[2017-05-27] MEDS ORDERED: FOLIC ACID 1 MG1 MG PO (13:27)
[2017-05-27] MEDS ORDERED: MULTIVITAMINS1 EAC7 PO (13:27)
[2017-05-27 14:25] VITALS: BP 152/97
[2017-05-27] MEDS ORDERED: ZOFRAN ODT4 MG PO (15:41)
== END 2017-05-27 15:56 | disposition home or self-care (01) | DRG 897 ==
LOC: ER 00:22 → EROBS 02:02 → 2N 02:02
PROVIDERS: Internal Medicine; Physician Assistant
DX: F10.239 Alcohol dependence with withdrawal, unspecified (principal); E87.2 Acidosis; K70.10 Alcoholic hepatitis without ascites; E78.5 Hyperlipidemia, unspecified; R79.89 Other specified abnormal findings of blood chemistry; F17.210 Nicotine dependence, cigarettes, uncomplicated; Y90.0 Blood alcohol level of less than 20 mg/100 ml; Z90.49 Acquired absence of other specified parts of digestive tract; Z88.8 Allergy status to other drugs, medicaments and biological substances; Z79.899 Other long term (current) drug therapy; Z83.3 Family history of diabetes mellitus
CPT/HCPCS: 10081

== ENCOUNTER 2017-06-20 19:26 | Inpatient (IN) | payer BC, OTHER ==
[~2017-06-20] VITALS: Ht 172.7 cm; Wt 84.2 kg
--- NOTE | ~2017-06-20 | EKG ---
[address] [place] [address] ELECTROCARDIOGRAM REPORT Name: JE EVANS Room #: 457-P ADM IN M.R.#: [id number] Admission: 06/20/17 Attend Phys: Vicente Cabrera DO Discharge: Date of : 79 Report #: [id number] THIS REPORT FOR: //name// [facility] ED Test Date: 2017-06-20 Test Time: 19:47:34 Pat Name: JE EVANS Department: Room: [facility] Gender: M Gasoline Attendant: MZOOVicki : 1975 Requested By: Juan C Ragland Order Number: [id number] MD: Naif Cordova Measurements Intervals [place] Rate: 101 P: 75 CA: 146 QRS: 66 QRSD: 80 T: 49 QT: 333 QTc: 432 Interpretive Statements Sinus tachycardia RSR' in V1 or V2, probably normal variant Compared to ECG 05/25/2017 00:48:13 No significant change was found Electronically Signed On 06-21-2017 8:26:37 CDT by Naif Cordova [email or web address] <ELECTRONICALLY SIGNED> By: Naif Cordova MD, [facility] 06/21/17 08 46 46 Naif Cordova MD, [facility] /EPI
[~2017-06-20 19:26] MED LIST changes: +ZOFRAN ODT4 MG PO
[2017-06-20 19:30] VITALS: BP 144/82
[2017-06-20] MEDS ORDERED: TRAZODONE HCL100 MG PO (19:39)
[2017-06-20 19:59] LABS: ABSOLUTE NEUTROPHILS 6.2 thou/uL (1.4-8.2); BASOPHILS 1.2 % (0.0-2.0); HEMATOCRIT 46.3 % (42.0-52.0); HEMOGLOBIN 15.9 gm/dL (14.0-18.0); LYMPHOCYTES 24.1 % (24.0-44.0); MCH 30.3 pg (26.0-34.0); MCHC 34.4 g/dL (28.0-37.0); MONOCYTES 4.8 % (1.0-8.0); PLATELET COUNT 251 thou/uL (150-400); POLYS 68.9 % (36.0-66.0); RBC 5.26 mil/uL (4.50-6.00); RDW 13.2 % (10.5-14.5); WBC 9.1 thou/uL (4.0-11.0)
[2017-06-20 20:00] LABS: MANUAL DIFF NO
[2017-06-20 20:12] LABS: ANION GAP 22 mmol/L (7-16); BUN 15 mg/dL (7-18); CALCIUM 9.1 mg/dL (8.5-10.1); CHLORIDE 100 mmol/L (98-107); CO2 17 mmol/L (21-32); CREATININE 0.9 mg/dL (0.7-1.3); GLUCOSE 106 mg/dL (74-106); POTASSIUM 3.4 mmol/L (3.5-5.1); SODIUM 139 mmol/L (136-145)
[2017-06-20 20:20] LABS: ALBUMIN 4.3 g/dL (3.4-5.0); ALKALINE PHOSPHATASE 92 U/L (46-116); SGOT 143 U/L (15-37); SGPT 328 U/L (30-65); TOTAL BILIRUBIN 0.7 mg/dL (<0.1-1.0); TOTAL PROTEIN 7.6 g/dL (6.4-8.2); TROPONIN-I < 0.04 ng/mL (<0.04-0.07)
[2017-06-20 22:19] LABS: URINE BILIRUBIN NEGATIVE (Negative); URINE BLOOD TRACE (Negative); URINE COLOR YELLOW; URINE GLUCOSE-RANDOM* NEGATIVE (Negative); URINE KETONES 2+ (Negative); URINE LEUKOCYTES-REFLEX NEGATIVE (Negative); URINE PROTEIN (DIPSTICK) 1+ (Negative); URINE SPECIFIC GRAVITY >= 1.030 (1.003-1.035); URINE UROBILINOGEN 0.2 E.U./dl (0.2-1.0)
[2017-06-20 22:26] VITALS: BP 144/82
[2017-06-20 22:28] LABS: AMP/METHAMP Negative (Negative); BARBITURATES Negative (Negative); BENZODIAZEPINES Negative (Negative); COCAINE Negative (Negative); METHADONE Negative (Negative); OPIATES POSITIVE (Negative); PCP Negative (Negative); THC Negative (Negative)
[2017-06-20 23:00] VITALS: BP 151/89
[2017-06-20 23:07] VITALS: BP 144/82
[2017-06-21 03:36] VITALS: BP 142/83
[2017-06-21 07:08] LABS: ALBUMIN 3.9 g/dL (3.4-5.0); CALCIUM 8.7 mg/dL (8.5-10.1); TOTAL BILIRUBIN 0.6 mg/dL (<0.1-1.0); TOTAL PROTEIN 7.2 g/dL (6.4-8.2)
[2017-06-21 07:11] LABS: POTASSIUM 4.5 mmol/L (3.5-5.1)
[2017-06-21 08:00] VITALS: BP 158/99
[2017-06-21 12:00] VITALS: BP 143/100
[2017-06-21 16:00] VITALS: BP 141/99
[2017-06-21 18:57] VITALS: BP 154/103
[2017-06-22 03:49] VITALS: BP 123/92
[2017-06-22 08:28] VITALS: BP 146/99
[2017-06-22] MEDS ORDERED: DILAUDID 2 MG TA2 MG PO (09:21)
[2017-06-22 12:00] VITALS: BP 144/94
[2017-06-22 15:29] VITALS: BP 144/94
== END 2017-06-22 18:01 | disposition home or self-care (01) | DRG 392 ==
LOC: ER 19:26 → 4W 21:49 → EROBS 21:49 → 4W 22:30
PROVIDERS: Emergency Medicine
DX: K20.9 Esophagitis, unspecified (principal); E87.2 Acidosis; K29.20 Alcoholic gastritis without bleeding; E78.00 Pure hypercholesterolemia, unspecified; E78.1 Pure hyperglyceridemia; F17.210 Nicotine dependence, cigarettes, uncomplicated; K70.10 Alcoholic hepatitis without ascites; F10.129 Alcohol abuse with intoxication, unspecified; E87.6 Hypokalemia; R74.0 Nonspecific elevation of levels of transaminase and lactic acid dehydrogenase [LDH]; Z79.899 Other long term (current) drug therapy; Z88.8 Allergy status to other drugs, medicaments and biological substances; Z90.49 Acquired absence of other specified parts of digestive tract
CPT/HCPCS: 10045

== ENCOUNTER 2017-07-11 12:40 | Inpatient (IN) | payer BC, OTHER ==
[2017-07-11] VITALS (12 sets, daily range): BP systolic 124–158; BP diastolic 70–97
[~2017-07-11] VITALS: Ht 172.7 cm; Wt 84.4 kg
--- NOTE | ~2017-07-11 | S ---
[facility] [place] [address] [address] SURGICAL PATH RPT PROCEDURE Name: JE DE LOS SANTOS Room #: 434-P DIS IN M.R.#: [id number] Admission: 07/11/17 Date of : 79 Discharge: 07/14/17 Report #: [id number] Path Case #: [id number] PATHOLOGY REPORT COLLECTION DATE: 07/13/2017 RECEIVED DATE: 07/13/2017 SUBMITTING PHYS: Dr. Anup Fofana OTHER PHYS: SHANNAN Camejo SPECIMEN(S) RECEIVED: A.Duodenal bx B.Antrum bx C.Gastric body bx * * * * * * * * * * * * FINAL DIAGNOSIS: A. Small bowel, duodenum, biopsy: - Duodenal mucosa with mild reactive changes. B. Stomach, antrum, biopsy: - Mild chronic inactive gastritis. - An H. pylori immunostain is negative (Block B1; appropriately reactive control). C. Stomach, body, biopsy: - Chronic focally active gastritis. - An H. pylori immunostain is negative (Block C1; appropriately reactive control). PATHOLOGIST: Layo Witt M.D. REPORT ELECTRONICALLY SIGNED BY: Layo Witt M.D. DATE/TIME: 07/15/2017 12:31 * * * * * * * * * * * * GROSS PATHOLOGY: A. Received in formalin labeled "Je De Los Santos, duodenal BX," are 2 segments of carrillo soft tissue measuring 0.5 x 0.3 x 0.1 cm in aggregate dimensions and ranging from 0.2 to 0.3 cm in maximum dimension. The specimen is submitted entirely in cassette A1. B. Received in formalin labeled "Je De Los Santos, antrum BX," are 2 segments of carrillo soft tissue measuring 0.5 x 0.3 x 0.2 cm in aggregate dimensions and ranging from 0.2 to 0.3 cm in maximum dimension. The specimen is submitted entirely in cassette B1. C. Received in formalin labeled "Je De Los Santos, gastric body," are 3 segments of carrillo soft tissue measuring 1.7 x 0.3 x 0.1 cm in aggregate dimensions and ranging from 0.4 to 0.8 cm in maximum dimension. The specimen is submitted entirely in cassette C1. [address] [place] [address] SURGICAL PATH RPT PROCEDURE Name: JE DE LOS SANTOS Room #: 434-P [facility] IN M.R.#: [id number] Admission: 07/11/17 Date of : 79 Discharge: 07/14/17 Report #: [id number] Path Case #: [id number] ([facility]; 07/14/2017) CLINICAL HISTORY: A. rule out duodenalitis B. rule out H. pylori C. rule out H. pylori Abdominal pain, gastritis, duodenalitis INITIAL CPT CODE(S): A; 04224 B; 53048, 00543 C; 96894, 63251 Professional services performed by [facility] at [address] [place] [address] Technical services performed by [facility] at [address] [place] [address], [address], [place] [address]. [facility] [address] [place] [address] PHONE: [phone] DIRECTOR: Yonas Strong M.D. * * * END OF REPORT * * *
--- NOTE | ~2017-07-11 | HC ---
[facility] [address] [address] CONSULTATION Name: JE EVANS Room #: 434-P [facility] IN M.R.#: [id number] Admission: 07/11/17 Attend Phys: Anup Fofana MD Discharge: 07/14/17 Date of : 79 Report #: [id number] THIS REPORT FOR: //name// CC: Barbara Fofana DATE OF SERVICE: 07/11/2017 HISTORY OF PRESENT ILLNESS: I have been asked to evaluate this 42-year-old male who has been evaluated and consulted on by our service multiple times. He has presented back to the hospital with worsening abdominal pain associated with vomiting. The patient has a known history of alcohol intoxication and withdrawal associated with esophagitis and gastritis. He reports that he drink half a pint of amanda on the weekend and developed severe abdominal pain associated with vomiting. He has had symptoms of fever and chills recently secondary he thought to an upper respiratory infection. He does take his Carafate on a daily basis and also a PPI. He has started seeing a psychologist for the alcohol abuse issues. PAST MEDICAL HISTORY: Consistent with hypercholesterolemia, previous appendectomy, gastritis, fatty liver, severe esophagitis, hypertriglyceridemia, pancreatitis and tobacco abuse. ALLERGIES: He is allergic to DEMEROL only which caused vomiting. CURRENT MEDICATIONS: Carafate, Protonix, Zofran and some Dilaudid medication and Ultram. 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 Does smoke cigarettes on a daily basis. Utilizes alcohol on a regular basis. FAMILY HISTORY: Grandparents have diabetes mellitus type 2. REVIEW OF SYSTEMS: Ten-point review of systems noncontributory except for the worsening abdominal pain with vomiting. PHYSICAL EXAMINATION: GENERAL: Demonstrates the patient to be in no acute distress. LUNGS: Clear to bases. CARDIOVASCULAR: Regular rate and rhythm. ABDOMEN: Mild tenderness midepigastrium, no guarding or rebound is present. Review of the patient's laboratories demonstrate some degree of lactic acidosis. CT scan is consistent with gastric distention. DIAGNOSTIC IMPRESSION AND RECOMENDATION: Gastric distention consistent with [facility] [address] [place] [address] CONSULTATION Name: NATHANJE RAYMUNDO Room #: 434-P [facility] IN ..#: [id number] Admission: 07/11/17 Attend Phys: Anup Fofana MD Discharge: 07/14/17 Date of : 79 Report #: [id number] alcohol abuse. I would recommend NG suction, IV fluids, GI consultation. The patient does not have clinical or mechanical pancreatitis at this time. Thank you for allowing us to evaluate him and provide this consultation. <ELECTRONICALLY SIGNED> By: Max Jaquez MD, FACS 07/15/17 1148 1721 20 Max Jaquez MD, FACS /nt
--- NOTE | ~2017-07-11 | P ---
[facility] [place] [address] [address] PROCEDURE REPORT Name: JE EVANS Room #: 434-P ADM IN M.R.#: [id number] Admission: 07/11/17 Attend Phys: Anup Fofana MD Discharge: Date of : 79 Report #: [id number] THIS REPORT FOR: //name// CC: Barbara Fofana MD DATE OF SERVICE: 07/13/2017 PROCEDURE: EGD with biopsy. A patient of nurse Jayna Kebede and Dr. Anup Fofana. INDICATION FOR PROCEDURE: The patient came in with nausea and vomiting. He had been drinking alcohol this past weekend, has a history of heavy alcohol use, but only drinks intermittently now. He presented with nausea, vomiting and anorexia. EGD is being performed because the CT scan revealed thickening of the distal antrum and the pylorus of uncertain etiology. Informed consent for this procedure was obtained prior to the administration of any medication. The risks of the procedure, which include bleeding, perforation, infection, complications of sedation and the possibility I could miss something have been explained to the patient and he has indicated his consent by signing. DESCRIPTION OF PROCEDURE: Propofol was slowly titrated before and during this procedure for the patient comfort by the Anesthesia Service. The [employer] upper videoscope was introduced through the upper esophageal sphincter and advanced under direct visualization to the descending duodenum. Findings are noted on withdrawal of the scope. Second portion of duodenum appears normal and there is bile in the second portion. The duodenal bulb is erythematous and edematous. Biopsies were obtained x 2 for histopathology. Good hemostasis was noted after those biopsies. Pylorus, there is no evidence any ulceration in the pylorus. There is no evidence of any obstruction. In the antrum, the mucosa is erythematous. Biopsies were obtained x 2 for histopathology to evaluate for gastritis. Biopsies were obtained x 2 from the duodenal bulb to evaluate his duodenitis. Body, erythematous with erosions on the tops of the gastric folds. I biopsied the body of the stomach x 4 for histopathology. Cardia and fundus, normal mucosa with regard to erythema, but the mucosa is edematous. The scope was withdrawn to the esophagus. The Z-line is appropriately located at the top gastric folds and appears normal. There is some mild distal esophageal erythema. The more proximal esophageal mucosa appears normal. The scope was withdrawn. The patient went to the recovery area in stable condition. He tolerated the procedure well. [address] [address] PROCEDURE REPORT Name: JE EVANS Room #: 434-P [facility] IN ..#: [id number] Admission: 07/11/17 Attend Phys: Anup Fofana MD Discharge: Date of : 79 Report #: [id number] IMPRESSION: 1. Duodenitis of the bulb. 2. Diffuse gastritis of the antrum and body of the stomach as described above. Biopsies pending. 3. Mild distal esophageal erythema. RECOMMENDATIONS: My recommendations at this point are to consider a gastric emptying study if it has not been done yet. I would also advice against any kind of alcohol intake; make sure the patient is maintained on proton pump inhibitors and possibly some Carafate if needed. We will await the biopsy results. Thank you very much once again for allowing me to participate in his care. <ELECTRONICALLY SIGNED> By: Daniela Ji DO 07/13/172114 122 25 Daniela Ji DO /nt
--- NOTE | ~2017-07-11 | EKG ---
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1975 Requested By: Stacy Aguirre Order Number: [id number] MD: Gary Fernandez Measurements Intervals [place] Rate: 118 P: 70 [place]: 128 QRS: 67 QRSD: 83 T: 55 QT: 290 QTc: 407 Interpretive Statements Sinus tachycardia Left atrial enlargement Artifact in lead(s) II,aVR,aVF,V4,V5,V6 Compared to ECG 06/20/2017 19:47:34 Atrial abnormality now present Electronically Signed On 07-11-2017 16:38:50 CDT by Gary Fernandez [email or web address] <ELECTRONICALLY SIGNED> By: Gary Fernandez MD 07/11/17 1638 1446 1446 Gary Fernandez MD /EPI
[~2017-07-11 12:40] MED LIST changes: +DILAUDID 2 MG TA2 MG PO; +TRAZODONE HCL100 MG PO
[2017-07-11 14:57] LABS: HEMATOCRIT 47.2 % (42.0-52.0); HEMOGLOBIN 15.3 gm/dL (14.0-18.0); MCHC 32.3 g/dL (28.0-37.0); MCV 89.5 fL (80.0-100.0); PLATELET COUNT 336 thou/uL (150-400); RBC 5.28 mil/uL (4.50-6.00); RDW 13.9 % (10.5-14.5); WBC 15.4 thou/uL (4.0-11.0)
[2017-07-11 15:06] LABS: MANUAL DIFF YES
[2017-07-11 15:07] LABS: ANION GAP 25 mmol/L (7-16); BUN 18 mg/dL (7-18); CALCIUM 9.7 mg/dL (8.5-10.1); CHLORIDE 98 mmol/L (98-107); CO2 12 mmol/L (21-32); CREATININE 1.4 mg/dL (0.7-1.3); GLUCOSE 111 mg/dL (74-106); POTASSIUM 5.8 mmol/L (3.5-5.1); SODIUM 135 mmol/L (136-145)
[2017-07-11 15:16] LABS: ALBUMIN 4.9 g/dL (3.4-5.0); ALKALINE PHOSPHATASE 91 U/L (46-116); DIRECT BILIRUBIN < 0.1 mg/dL (<0.1-0.3); SGOT 32 U/L (15-37); SGPT 64 U/L (30-65); TOTAL BILIRUBIN 0.5 mg/dL (<0.1-1.0); TOTAL PROTEIN 8.5 g/dL (6.4-8.2); TROPONIN-I < 0.04 ng/mL (<0.04-0.07)
[2017-07-11 15:34] LABS: ABSOLUTE NEUTROPHILS 13.4 thou/uL (1.4-8.2); PLATELET ESTIMATE NORMAL; TOTAL CELL COUNT 100
[2017-07-11 15:36] LABS: ABG SAMPLE TYPE ARTERIAL; BE(vivo) -14.4 mmol/L (-2 to +3); HCO3 11.4 mmol/L (22.0-26.0); O2(CT) 20.7 mL/dL (15.0-23.0); O2Hb 95.4 % (92.0-98.0); PCO2 27.6 mmHg (35.0-45.0); PO2 91.4 mmHg (80.0-100.0); sO2 95.8 % (92.0-98.0); tCO2 12.3 mmol/L (24.0-30.0)
[2017-07-11 15:37] LABS: LACTATE 7.15 mmol/L (0.5-2.0); STICK SITE R.RADIAL; pH 7.234 (7.360-7.450)
[2017-07-11 16:42] LABS: URINE BILIRUBIN NEGATIVE (Negative); URINE BLOOD TRACE (Negative); URINE COLOR YELLOW; URINE GLUCOSE-RANDOM* NEGATIVE (Negative); URINE KETONES 1+ (Negative); URINE NITRITE NEGATIVE (Negative); URINE PROTEIN (DIPSTICK) TRACE (Negative); URINE SPECIFIC GRAVITY >= 1.030 (1.003-1.035); URINE UROBILINOGEN 0.2 E.U./dl (0.2-1.0)
[2017-07-11 20:43] LABS: HEMATOCRIT 41.9 % (42.0-52.0); HEMOGLOBIN 14.3 gm/dL (14.0-18.0); MCH 29.3 pg (26.0-34.0); MCHC 34.1 g/dL (28.0-37.0); PLATELET COUNT 269 thou/uL (150-400); RBC 4.87 mil/uL (4.50-6.00); RDW 13.7 % (10.5-14.5); WBC 8.9 thou/uL (4.0-11.0)
[2017-07-11 20:46] LABS: MANUAL DIFF YES
[2017-07-11 20:52] LABS: CALCIUM 8.9 mg/dL (8.5-10.1); CREATININE 1.1 mg/dL (0.7-1.3)
[2017-07-11 20:57] LABS: PHOSPHORUS 3.5 mg/dL (2.5-4.9); TOTAL BILIRUBIN 0.7 mg/dL (<0.1-1.0)
[2017-07-11 20:58] LABS: ALBUMIN 4.1 g/dL (3.4-5.0); MAGNESIUM 1.8 mg/dL (1.8-2.4); TOTAL PROTEIN 7.2 g/dL (6.4-8.2)
[2017-07-11 21:36] LABS: ABSOLUTE NEUTROPHILS 6.7 thou/uL (1.4-8.2); ANISOCYTOSIS 1+; TOTAL CELL COUNT 100
[2017-07-11 21:53] LABS: FOLIC ACID > 40.0 ng/mL (8.6-58.9)
[2017-07-12] VITALS (18 sets, daily range): BP systolic 109–147; BP diastolic 68–99
[2017-07-12 03:57] LABS: HEMATOCRIT 41.2 % (42.0-52.0); HEMOGLOBIN 13.7 gm/dL (14.0-18.0); MCH 29.1 pg (26.0-34.0); MCHC 33.4 g/dL (28.0-37.0); MCV 87.2 fL (80.0-100.0); PLATELET COUNT 230 thou/uL (150-400); RBC 4.72 mil/uL (4.50-6.00); RDW 13.7 % (10.5-14.5); WBC 6.7 thou/uL (4.0-11.0)
[2017-07-12 03:58] LABS: MANUAL DIFF YES
[2017-07-12 04:07] LABS: CALCIUM 8.7 mg/dL (8.5-10.1); CREATININE 1.1 mg/dL (0.7-1.3); MAGNESIUM 1.8 mg/dL (1.8-2.4); POTASSIUM 3.8 mmol/L (3.5-5.1)
[2017-07-12 04:42] LABS: ABSOLUTE NEUTROPHILS 3.8 thou/uL (1.4-8.2); ATYPICAL LYMPHS 1 %; TOTAL CELL COUNT 100
[2017-07-12 04:43] LABS: LARGE PLATELETS OCCASIONAL
[2017-07-12 05:11] LABS: FREE T4 0.79 ng/dL (0.82-1.77)
[2017-07-13 00:02] VITALS: BP 130/85
[2017-07-13 04:44] VITALS: BP 136/77
[2017-07-13 06:27] LABS: CALCIUM 8.7 mg/dL (8.5-10.1); CREATININE 0.8 mg/dL (0.7-1.3); MAGNESIUM 1.6 mg/dL (1.8-2.4); PHOSPHORUS 4.3 mg/dL (2.5-4.9); POTASSIUM 3.5 mmol/L (3.5-5.1)
[2017-07-13 07:30] VITALS: BP 142/92
[2017-07-13 15:00] VITALS: BP 139/93
[2017-07-13 20:15] VITALS: BP 151/99
[2017-07-14 03:57] VITALS: BP 129/92
[2017-07-14 07:59] VITALS: BP 132/86
[2017-07-14] MEDS ORDERED: VITAMIN B-1100 M2 PO (14:54)
[2017-07-14] MEDS ORDERED: NORCO 5-325 TA1 EACH PO (14:55)
[2017-07-14] MEDS ORDERED: CARAFATE 1 GM TA1 G1 PO (14:56)
[2017-07-14] MEDS ORDERED: ZOFRAN ODT4 MG PO (14:57)
[2017-07-14 15:20] VITALS: BP 132/86
[2017-07-14 17:50] VITALS: BP 132/86
== END 2017-07-14 17:40 | disposition home or self-care (01) | DRG 381 ==
LOC: ER 12:40 → 4S 16:25 → EROBS 16:25 → ICU 19:02 → 4S 07-12 17:23 → ENTRNSPT 07-14 17:01 → 4S 07-14 17:40
PROVIDERS: Emergency Medicine; Internal Medicine; Nurse Practitioner
PROC: 0DB68ZX Excision of Stomach, Via Natural or Artificial Opening Endoscopic, Diagnostic (ICD-10-PCS; principal; 2017-07-13)
PROC: 0DB98ZX Excision of Duodenum, Via Natural or Artificial Opening Endoscopic, Diagnostic (ICD-10-PCS; principal; 2017-07-13)
PROC: 0DB78ZX Excision of Stomach, Pylorus, Via Natural or Artificial Opening Endoscopic, Diagnostic (ICD-10-PCS; principal; 2017-07-13)
DX: K31.1 Adult hypertrophic pyloric stenosis (principal); N17.9 Acute kidney failure, unspecified; F10.239 Alcohol dependence with withdrawal, unspecified; F17.210 Nicotine dependence, cigarettes, uncomplicated; E78.00 Pure hypercholesterolemia, unspecified; Z60.2 Problems related to living alone; K29.80 Duodenitis without bleeding; K29.70 Gastritis, unspecified, without bleeding; E87.5 Hyperkalemia; K20.9 Esophagitis, unspecified; E78.5 Hyperlipidemia, unspecified; F41.9 Anxiety disorder, unspecified; E78.1 Pure hyperglyceridemia; K76.0 Fatty (change of) liver, not elsewhere classified; Z71.41 Alcohol abuse counseling and surveillance of alcoholic; Z71.6 Tobacco abuse counseling; Z90.49 Acquired absence of other specified parts of digestive tract; Z88.8 Allergy status to other drugs, medicaments and biological substances; Z23 Encounter for immunization; Z83.3 Family history of diabetes mellitus
CPT/HCPCS: 10078; 10100; 62110; 62900; 70005

== ENCOUNTER 2017-11-07 16:33 | Emergency (ER) | payer BC, OTHER ==
[~2017-11-07] VITALS: Ht 172.7 cm; Wt 83.9 kg
[~2017-11-07 16:33] MED LIST changes: +NORCO 5-325 TA1 EACH PO; +VITAMIN B-1100 M2 PO
[2017-11-07] MEDS ORDERED: VITAMIN D1000 UNI1 PO (16:48)
[2017-11-07 17:44] LABS: ABSOLUTE NEUTROPHILS 3.4 thou/uL (1.4-8.2); BASOPHILS 1.3 % (0.0-2.0); EOSINOPHILS 3.1 % (0.0-3.0); HEMATOCRIT 45.4 % (42.0-52.0); HEMOGLOBIN 15.5 gm/dL (14.0-18.0); LYMPHOCYTES 32.6 % (24.0-44.0); MCH 28.1 pg (26.0-34.0); MCHC 34.1 g/dL (28.0-37.0); MCV 82.5 fL (80.0-100.0); MONOCYTES 8.6 % (1.0-8.0); PLATELET COUNT 258 thou/uL (150-400); POLYS 54.4 % (36.0-66.0); RDW 14.6 % (10.5-14.5); WBC 6.2 thou/uL (4.0-11.0)
[2017-11-07 18:02] LABS: POTASSIUM 3.3 mmol/L (3.5-5.1)
[2017-11-07 18:07] LABS: ALBUMIN 4.2 g/dL (3.4-5.0); DIRECT BILIRUBIN 0.2 mg/dL (<0.1-0.3); TOTAL BILIRUBIN 0.8 mg/dL (<0.1-1.0); TOTAL PROTEIN 7.2 g/dL (6.4-8.2)
[2017-11-07] MEDS ORDERED: ZOFRAN ODT4 MG PO (20:25)
[2017-11-07] MEDS ORDERED: BENTYL 20 MG TA20 M1 PO (20:25)
[2017-11-07 20:46] VITALS: BP 122/88
== END 2017-11-07 20:46 | disposition home or self-care (01) ==
LOC: ER 16:33
PROVIDERS: Emergency Medicine
DX: R10.33 Periumbilical pain (principal); R11.0 Nausea; E78.00 Pure hypercholesterolemia, unspecified; Z90.49 Acquired absence of other specified parts of digestive tract; F17.210 Nicotine dependence, cigarettes, uncomplicated; Z88.8 Allergy status to other drugs, medicaments and biological substances

== ENCOUNTER 2017-11-22 03:13 | Emergency (ER) | payer BC, OTHER ==
[~2017-11-22] VITALS: Ht 172.7 cm; Wt 83.9 kg
[~2017-11-22 03:13] MED LIST changes: +BENTYL 20 MG TA20 M1 PO; +VITAMIN D1000 UNI1 PO
[2017-11-22] MEDS ORDERED: PHENERGAN 25 MG25 M1 PO (04:37)
[2017-11-22 05:00] VITALS: BP 162/95
== END 2017-11-22 05:01 | disposition home or self-care (01) ==
LOC: ER 03:13
DX: R10.13 Epigastric pain (principal); R11.2 Nausea with vomiting, unspecified; E78.00 Pure hypercholesterolemia, unspecified; F17.210 Nicotine dependence, cigarettes, uncomplicated; Z90.49 Acquired absence of other specified parts of digestive tract; Z88.5 Allergy status to narcotic agent

== ENCOUNTER 2018-09-27 12:10 | Emergency (ER) | payer BC, OTHER ==
[~2018-09-27] VITALS: Ht 172.7 cm; Wt 88.5 kg
--- NOTE | ~2018-09-27 | EKG ---
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
[~2018-09-27 12:10] MED LIST changes: +PHENERGAN 25 MG25 M1 PO
[2018-09-27] MEDS ORDERED: ADDERALL XR 3030 MG PO (12:34)
[2018-09-27] MEDS ORDERED: METFORMIN HCL500 MG PO (12:34)
[2018-09-27] MEDS ORDERED: LISINOPRIL10 MG PO (12:34)
[2018-09-27] MEDS ORDERED: PROTONIX40 M1 PO (12:35)
[2018-09-27 12:58] LABS: ABSOLUTE NEUTROPHILS 3.9 thou/uL (1.4-8.2); BASOPHILS 1.4 % (0.0-2.0); EOSINOPHILS 2.3 % (0.0-3.0); HEMOGLOBIN 14.1 gm/dL (14.0-18.0); LYMPHOCYTES 30.1 % (24.0-44.0); MCH 26.1 pg (26.0-34.0); MCHC 33.7 g/dL (28.0-37.0); MCV 77.5 fL (80.0-100.0); MONOCYTES 7.5 % (1.0-8.0); PLATELET COUNT 258 thou/uL (150-400); POLYS 58.7 % (36.0-66.0); RBC 5.42 mil/uL (4.50-6.00); RDW 15.8 % (10.5-14.5); WBC 6.6 thou/uL (4.0-11.0)
[2018-09-27 13:06] LABS: ANION GAP 11 mmol/L (7-16); BUN 6 mg/dL (7-18); CALCIUM 9.8 mg/dL (8.5-10.1); CHLORIDE 102 mmol/L (98-107); CO2 25 mmol/L (21-32); CREATININE 1.1 mg/dL (0.7-1.3); GLUCOSE 110 mg/dL (74-106); POTASSIUM 3.5 mmol/L (3.5-5.1); SODIUM 138 mmol/L (136-145)
[2018-09-27 13:15] LABS: ALBUMIN 4.6 g/dL (3.4-5.0); LIPASE 135 U/L (73-393); SGOT 27 U/L (15-37); SGPT 74 U/L (30-65); TOTAL BILIRUBIN 0.6 mg/dL (<0.1-1.0); TOTAL PROTEIN 8.1 g/dL (6.4-8.2); TROPONIN-I <0.06 ng/mL (<0.06)
[2018-09-27] MEDS ORDERED: ZOFRAN ODT4 MG PO ×2 (14:26→14:41)
[2018-09-27] MEDS ORDERED: BENTYL 20 MG TA20 M1 PO (14:41)
[2018-09-27] MEDS ORDERED: HYDROXYZINE HCL25 M1 PO (14:41)
[2018-09-27 14:49] VITALS: BP 139/95
== END 2018-09-27 14:56 | disposition home or self-care (01) ==
LOC: ER 12:10
PROVIDERS: Physician Assistant
DX: R11.0 Nausea (principal); R10.33 Periumbilical pain; F41.9 Anxiety disorder, unspecified; R42 Dizziness and giddiness; E78.00 Pure hypercholesterolemia, unspecified; Z90.49 Acquired absence of other specified parts of digestive tract; F17.210 Nicotine dependence, cigarettes, uncomplicated; Z88.8 Allergy status to other drugs, medicaments and biological substances

== ENCOUNTER → 2018-10-12 | Outpatient (CLI) | payer BC, OTHER ==
[~2018-10-12] MED LIST changes: +ADDERALL XR 3030 MG PO; +HYDROXYZINE HCL25 M1 PO; +LISINOPRIL10 MG PO; +METFORMIN HCL500 MG PO
== END ==
LOC: ULTRA 10:50
DX: K76.0 Fatty (change of) liver, not elsewhere classified (principal); R10.13 Epigastric pain

== ENCOUNTER 2019-04-01 21:15 | Inpatient (IN) | payer BC, OTHER ==
[~2019-04-01] VITALS: Ht 172.7 cm; Wt 89.3 kg
--- NOTE | ~2019-04-01 | O ---
[facility] [place] [address] OPERATIVE REPORT Name: JE EVANS Room #: 239-P ADM IN M.R.#: [id number] Admission: 04/02/19 ������������������ Attend Phys: Arnie Nick MD Discharge: ������������������ Date of : 79 Report #: [id number] THIS REPORT FOR: //name// CC: Kwame Bedolla DATE OF SERVICE: 04/02/2019 PREOPERATIVE DIAGNOSIS: Acute abdomen. POSTOPERATIVE DIAGNOSIS: No evidence of abdominal pathology. PROCEDURE: Diagnostic laparoscopy. SURGEON: Kwame Aleman MD ANESTHESIA: General. ESTIMATED BLOOD LOSS: Minimal. SPECIMENS: None. DESCRIPTION OF PROCEDURE: After informed consent was obtained, the patient was brought to the operating room and placed supine. SCDs were placed and working, preoperative antibiotics were administered, general anesthesia was induced. The abdomen was prepped and draped in the usual sterile fashion. A 5 mm incision was made in the left upper quadrant. A 5 mm trocar was placed under direct vision. Pneumoperitoneum was established. A 5 mm left-sided port was placed as well. I then examined the entire abdomen. The liver was somewhat fatty, but normal. The stomach was normal. There was no evidence of ischemia. I then ran the small bowel from the ligament of Treitz down to the cecum. This was all normal. Pictures were taken to document this. I then examined the gallbladder, which was normal. The ascending, transverse, and descending colons were examined and these were normal as well. There was no evidence of bowel ischemia. The ports were then removed under direct vision and the skin was closed with 4-0 Monocryl. Incisions were sealed with Dermabond. COMPLICATIONS: None. [facility] [address] [place] [address] OPERATIVE REPORT Name: NATHANJE [facility] Room #: 239-P [facility] IN [facility].#: [id number] Admission: 04/02/19 ������������������ Attend Phys: Arnie Nick MD Discharge: ������������������ Date of : 79 Report #: [id number] DISPOSITION: The patient was taken back to the Intensive Care Unit in guarded condition. ��������������������������������������������� ���������������������������������������� By: ��������������������������������������������� 0754 0805 Kwame Aleman MD /nt
[2019-04-01 21:16] VITALS: BP 194/88
[2019-04-01 21:39] LABS: HEMATOCRIT 46.5 % (42.0-52.0); HEMOGLOBIN 14.5 gm/dL (14.0-18.0); MCHC 31.1 g/dL (28.0-37.0); MCV 86.8 fL (80.0-100.0); PLATELET COUNT 435 thou/uL (150-400); RBC 5.36 mil/uL (4.50-6.00); RDW 17.7 % (10.5-14.5); WBC 28.9 thou/uL (4.0-11.0)
[2019-04-01 21:43] LABS: ANION GAP 39 mmol/L (7-16); BUN 14 mg/dL (7-18); CALCIUM 7.9 mg/dL (8.5-10.1); CHLORIDE 98 mmol/L (98-107); CREATININE 1.3 mg/dL (0.7-1.3); GLUCOSE 72 mg/dL (74-106); POTASSIUM 4.8 mmol/L (3.5-5.1); SODIUM 142 mmol/L (136-145)
[2019-04-01 21:55] LABS: ALBUMIN 4.5 g/dL (3.4-5.0); LIPASE 64 U/L (73-393); SGOT 57 U/L (15-37); SGPT 110 U/L (30-65); TOTAL BILIRUBIN 0.3 mg/dL (<0.1-1.0); TOTAL PROTEIN 8.4 g/dL (6.4-8.2)
[2019-04-01 21:56] LABS: CO2 < 5 mmol/L (21-32)
[2019-04-01 22:16] LABS: ABSOLUTE NEUTROPHILS 23.4 thou/uL (1.4-8.2); ANISOCYTOSIS 1+; METAMYELOCYTES 1 %; MYELOCYTES 2 %; PROMYELOCYTES 1 %
[2019-04-01 23:11] LABS: URINE BILIRUBIN NEGATIVE (Negative); URINE BLOOD 2+ (Negative); URINE CLARITY CLEAR; URINE COLOR YELLOW; URINE GLUCOSE-RANDOM* NEGATIVE (Negative); URINE KETONES 1+ (Negative); URINE LEUKOCYTES-REFLEX NEGATIVE (Negative); URINE NITRITE-REFLEX NEGATIVE (Negative); URINE PROTEIN (DIPSTICK) 1+ (Negative); URINE SPECIFIC GRAVITY >= 1.030 (1.005-1.035); URINE UROBILINOGEN 0.2 E.U./dl (0.2-1.0)
[2019-04-01 23:18] LABS: BACTERIA-REFLEX None Seen /HPF (None Seen); CRYSTALS None Seen /LPF (None Seen); FINE GRANULAR CASTS 0-3 Few /LPF (None Seen); MUCUS None Seen strn/LPF (None Seen); SQUAMOUS None Seen /LPF (0-3); URINE RBC 0-2 Rare /HPF (0-2); URINE WBC-REFLEX None Seen /HPF (0-5)
[2019-04-02] VITALS (49 sets, daily range): BP systolic 99–165; BP diastolic 43–105
[2019-04-02 01:50] LABS: BE(vivo) -33.8 mmol/L (-2 to +3); HCO3 1.6 mmol/L (22.0-26.0); PO2 122.8 mmHg (80.0-100.0); sO2 92.4 % (92.0-98.0)
[2019-04-02 01:52] LABS: PCO2 12.4 mmHg (35.0-45.0); pH 6.717 (7.360-7.450)
[2019-04-02] MEDS ORDERED: GLUCOPHAGE XR750 MG PO (05:05)
[2019-04-02] MEDS ORDERED: VITAMIN D250000 UNIT PO (05:06)
[2019-04-02] MEDS ORDERED: PROZAC20 MG PO (05:07)
[2019-04-02] MEDS ORDERED: GEODON40 MG PO (05:07)
[2019-04-02] MEDS ORDERED: NF PO ×5 (05:09→05:29)
[2019-04-02] MEDS ORDERED: IBUPROFEN 200200 M1 PO (05:10)
[2019-04-02] MEDS ORDERED: PROBIOTIC1 EAC2 PO (05:11)
[2019-04-02] MEDS ORDERED: VITAMIN E400 UNIT PO (05:12)
[2019-04-02] MEDS ORDERED: NAC600 MG PO (05:13)
[2019-04-02] MEDS ORDERED: MILK THISTLE500 MG PO (05:14)
[2019-04-02] MEDS ORDERED: L-THEANINE25 GM PO (05:16)
[2019-04-02] MEDS ORDERED: EPA-DHA 720 SO1 EACH PO (05:18)
[2019-04-02] MEDS ORDERED: B COMPLEX1 EACH PO (05:19)
[2019-04-02] MEDS ORDERED: PHYTOMULTI TAB1 EACH PO (05:20)
[2019-04-02] MEDS ORDERED: MELATONIN3 MG PO (05:26)
[2019-04-02] MEDS ORDERED: NF NASAL (05:32)
[2019-04-02 05:48] LABS: HEMATOCRIT 39.8 % (42.0-52.0); HEMOGLOBIN 12.6 gm/dL (14.0-18.0); MCH 27.3 pg (26.0-34.0); MCHC 31.7 g/dL (28.0-37.0); MCV 86.1 fL (80.0-100.0); RBC 4.62 mil/uL (4.50-6.00); RDW 17.4 % (10.5-14.5); WBC 20.6 thou/uL (4.0-11.0)
[2019-04-02 05:52] LABS: PLATELET COUNT 272 thou/uL (150-400)
[2019-04-02 06:00] LABS: ALBUMIN 3.6 g/dL (3.4-5.0); CALCIUM 6.6 mg/dL (8.5-10.1); CREATININE 1.9 mg/dL (0.7-1.3); MAGNESIUM 1.8 mg/dL (1.8-2.4); PHOSPHORUS 5.8 mg/dL (2.5-4.9); TOTAL BILIRUBIN 0.5 mg/dL (<0.1-1.0); TOTAL PROTEIN 6.5 g/dL (6.4-8.2)
[2019-04-02 06:05] LABS: POTASSIUM 6.5 mmol/L (3.5-5.1)
[2019-04-02 06:20] LABS: ABSOLUTE NEUTROPHILS 17.7 thou/uL (1.4-8.2); ANISOCYTOSIS 1+; ATYPICAL LYMPHS 1 %; METAMYELOCYTES 1 %
[2019-04-02 06:28] LABS: BE(vivo) -16.8 mmol/L (-2 to +3); HCO3 8.5 mmol/L (22.0-26.0); PO2 67.4 mmHg (80.0-100.0); sO2 90.7 % (92.0-98.0)
[2019-04-02 06:29] LABS: PCO2 20.3 mmHg (35.0-45.0); pH 7.238 (7.360-7.450)
--- NOTE | 2019-04-02 08:32 | NUR ---
PT AWAKENS EASILY, C/O OF ABD PAIN. NG TO LIS-SCANT BILE COLORED DRAINGE. REMAINS TACHYCARIC ON MONITOR WITH HR 120'S. LITER OF NS X2 BEING GIVEN ORDERED. LACTIC IMPROVED AFTER FLUIDS.PH IMPROVED AFTER BICARB GIVEN. REMAINS TACHYPNIC. UO -CLEAR-LARGE AMT OF UO. DR GALVIN AND DR WITT UPDATED ON STATUS.
[2019-04-02 11:21] LABS: BE(vivo) -8.5 mmol/L (-2 to +3); HCO3 15.7 mmol/L (22.0-26.0); PCO2 28.8 mmHg (35.0-45.0); PO2 144.4 mmHg (80.0-100.0); pH 7.354 (7.360-7.450); sO2 98.8 % (92.0-98.0)
[2019-04-02 12:40] LABS: ALBUMIN 3.5 g/dL (3.4-5.0); CALCIUM 7.3 mg/dL (8.5-10.1); CREATININE 1.7 mg/dL (0.7-1.3); PHOSPHORUS 1.6 mg/dL (2.5-4.9)
[2019-04-02 12:44] LABS: POTASSIUM 3.5 mmol/L (3.5-5.1)
--- NOTE | 2019-04-02 19:33 | NUR ---
ASSUMED CARE THIS AM, IMMEDIATELY TRANSPORTED TO SURGERY FOR EXPLORATORY LAP. BACK BY 830 ON VENT. EXTUBATED AT 1120. NEPHROLOGY AND GI SAW PATIENT AND PLAN TO POSSIBLY DO EGD THIS ADMISSON. RENAL PANEL DONE AT NOON AND LAB VALUES MUCH IMPROVED. MOTHER AT BEDSIDE AND PATIENT VERY CALM AND PLEASANT. C/O CONTINUED ABDOMINAL PAIN AND MORPINE 4MG IV GIVEN.
[2019-04-03] VITALS (14 sets, daily range): BP systolic 140–171; BP diastolic 86–105
[2019-04-03 04:56] LABS: HEMATOCRIT 37.5 % (42.0-52.0); HEMOGLOBIN 12.5 gm/dL (14.0-18.0); MCH 27.3 pg (26.0-34.0); MCHC 33.3 g/dL (28.0-37.0); MCV 82.2 fL (80.0-100.0); PLATELET COUNT 217 thou/uL (150-400); RBC 4.57 mil/uL (4.50-6.00); RDW 17.4 % (10.5-14.5); WBC 10.4 thou/uL (4.0-11.0)
[2019-04-03 05:19] LABS: ALBUMIN 3.3 g/dL (3.4-5.0); CALCIUM 7.7 mg/dL (8.5-10.1); MAGNESIUM 1.7 mg/dL (1.8-2.4); PHOSPHORUS 2.7 mg/dL (2.5-4.9); POTASSIUM 3.2 mmol/L (3.5-5.1); TOTAL BILIRUBIN 0.6 mg/dL (<0.1-1.0); TOTAL PROTEIN 6.3 g/dL (6.4-8.2)
[2019-04-03 05:50] LABS: ABSOLUTE NEUTROPHILS 8.8 thou/uL (1.4-8.2)
[2019-04-03 05:51] LABS: ANISOCYTOSIS 1+; PLATELET ESTIMATE NORMAL; POIKILOCYTOSIS 1+; POLYCHROMASIA 1+
--- NOTE | 2019-04-03 06:55 | NUR ---
SEE wiMAN FOR ASSESSMENT. PT SLEPT OFF/ON DURING NOC. AWAKENS EASILY. C/O OF ABDOMINAL SORENESS. MORPHINE GIVEN ORDERED. LAP SITES D/I. ABD DISTENDED, SOFT, AUDIBLE BS. QUIQUE FEW ICE, WITH NG TO LIS. GOOD UO. BP WNL. REMAINS ST ON MONITOR. LABS IMPROVED. CONT TO PROGRESS TOWARD GOALS. ENC TO C/DB REMAINS ON 2LNC. CONT PLAN OF CARE
--- NOTE | 2019-04-03 14:07 | NUR ---
ASSUMED CARE OF PT AT 0700 THIS SHIFT. PT HAS BEEN COOPERATIVE, HAS HAD ABDOMINAL PAIN THIS SHIFT. PT'S NG WAS DCd, PT STARTED ON REGULAR DIET. PT IS CURRENTLY TOLERATING SMALL AMOUNTS OF FOOD. PT HAS TRANSFER ORDERS OUT OF ICU, AND IS CURRENTLY RESTING COMFORTABLY IN ROOM. PT HAS HAD MOTHER VISIT THIS SHIFT, EDUCATION WAS PROVIDED. PLAN OF CARE IS TO CONTINUE TO MONITOR CLOSELY AT THIS TIME AND TO TRANSFER PT OUT OF ICU WHEN BED BECOMES AVAILABLE.
--- NOTE | 2019-04-03 17:29 | NUR ---
INITIAL ASSESSMENT: SW reviewed chart and spoke with nursing. Pt was admitted from home due to nausea/vomiting/gastric distension. Pt with hx of ETOH use. Pt is POD #1 diagnostic laparoscopy for suspected ischemic bowel. NG tube discontinued and pt started on a diet today. Pt has orders to transfer out of ICU when a bed is available. Plan for EGD tomorrow per GI. SW met with pt and mother at bedside. Introduced role of SW. Pt is alert/orientated x 4. Pt reports he lives at home alone. Prior to admission, pt was independent with ADLs. No use of DME. No hx of HH services or SNF/Rehab placement. Pt's PCP is Dr. Nick. Pt states there are 3 steps to enter his home and several steps inside. Plan is for pt to discharge home when medically stable. SW is following to assist as needed with discharge planning.
[2019-04-04 03:44] LABS: ALBUMIN 3.2 g/dL (3.4-5.0); CALCIUM 8.2 mg/dL (8.5-10.1); CREATININE 0.8 mg/dL (0.7-1.3); PHOSPHORUS 2.6 mg/dL (2.5-4.9); POTASSIUM 3.4 mmol/L (3.5-5.1)
[2019-04-04 03:48] LABS: ALBUMIN 3.2 g/dL (3.4-5.0); DIRECT BILIRUBIN 0.2 mg/dL (<0.1-0.3); TOTAL BILIRUBIN 0.9 mg/dL (<0.1-1.0)
[2019-04-04 04:00] VITALS: BP 143/100
--- NOTE | 2019-04-04 04:15 | NUR ---
RECEIVED PT'S CARE AT 1900; PT. ON BED; AOX4; REQUESTED NICOTINE PATCH; PHYSICIAN CONTACTED; CHECK CHART; DURING ASSESSMENT PT. C/O PAIN OVER ABDOMINAL AREA; ST. NOT FEELING CONSTIPATED; ABLE TO PASS GAS; EDUCATED ABOUT NPO AFTER MIDNIGHT DUE TO PROCEDURE; ST. UNDERSTANDING; ABLE TO VOID 600 ML AFTER HUA D/C; REQUESTED PRN PAIN MEDICATION AROUND 2300; IV PRN PAIN MEDICATION GIVEN; RE-ASSESSMENT PT. SLEEPING; REQUESTED PRN PAIN MEDICATION AT 0246; IV PRN PAIN MEDICATION GIVEN; RE-ASSESSMENT PT. SLEEPING; MONITORING; ASSESSMENT CHARGED; FOLLOWING POC; WILL PASS ON REPORT.
[2019-04-04 05:02] VITALS: BP 157/106
[2019-04-04 08:31] VITALS: BP 146/94
[2019-04-04 12:01] VITALS: BP 145/100
[2019-04-04 16:35] VITALS: BP 153/86
--- NOTE | 2019-04-04 18:33 | NUR ---
ASSUMED CARE AT 07, ALERT AND ORIENTED X4. VSS EXCEPT DPB. CIWA AT 2 THROUGH OUT THE DAY. EGD WAS DONE, AND CLEAR LIQ DIET TOLERATED.PROGRESSING TOWARD GOALS AND WILL CONTINUE WITH POC.
[2019-04-04 20:00] VITALS: BP 149/91
[2019-04-05 04:15] VITALS: BP 126/82
--- NOTE | 2019-04-05 04:24 | NUR ---
ASSESSMENT DOCUMENTED.PT BEEN RESTING IN NO ACUTE DISTRESS.A/OX4.VSS.SINUS RHYTHM ON MONITOR.PT TOLERATING CLEAR LIQUID DIET AND HOPING FOR DIET ADVANCEMENT THIS AM.C/O NAUSEAX1 THAT WAS CONTROLLED WITH ZOFRAN.C/O PAIN TO ABD 6-7/10 ON PAIN SCALE THAT WAS CONTROLLED WITH PAIN MEDS.VOIDS IN LARGE VOLUMES PER URINAL.CONT ON ABT THERAPY,TOLERATING,IVF INFUSING.NO FURTHER CONCERNS AT THIS TIME.WILL CONT TO MONITOR PER POC.
[2019-04-05 07:36] VITALS: BP 150/94
[2019-04-05 11:47] VITALS: BP 145/93
--- NOTE | 2019-04-05 17:05 | PATH ---
[facility] [address] [place] [address] PATHOLOGY RPT PROCEDURE Name: JE DE LOS SANTOSRET Room #: 212-P ADM IN M.R.#: [id number] ������������������ Admission: 04/02/19 ������������������ Date of : 79 Discharge: Report #: [id number] Path Case #: [id number] [facility] Accession Number: [id number] . 01 Material submitted: . gastrointestinal site - GASTRIC RULE OUT H PYLORI . 01 Clinical history: . R/O H pylori Preop DX: N/V; abnormal CT Postop DX: Gastroduodenitis, esophageal ulcer . 02 Diagnosis: Gastric mucosa, rule out H. pylori, endoscopic biopsy: - Mild chronic inflammation as well as nonspecific changes with lamina propria congestion. - Negative for intestinal metaplasia or atrophy. - Negative for Helicobacter pylori (properly controlled immunohistochemical stain performed). (IUV:av; 04/05/2019) MBDayanara/04/05/2019 . 02 Electronically signed: . Cristina Petersen MD, Pathologist NPI- [id number] . 01 Gross description: . Received in formalin labeled "Je De Los Santos, moises BX R/O H. pylori," are two segments of carrillo-brown soft tissue measuring 0.2 x 0.2 x 0.2 cm each in greatest dimensions. The specimen is submitted entirely in cassette A1. (DAC; 04/04/2019) XDC/XDC . 02 Pathologist provided ICD-10: K29.50 . 02 CPT . 752013, [id number] Specimen Comment: A courtesy copy of this report has been sent to Specimen Comment: [phone], . Specimen Comment: Report sent to / DR GALVIN Performed at: [address] [id number] MD Yanick Espinosa MD Phone: [phone] Performed at: [address] [address] PATHOLOGY RPT PROCEDURE Name: JE DE LOS SANTOS Room #: 212-P ADM IN M.R.#: [id number] ������������������ Admission: 04/02/19 ������������������ Date of : 79 Discharge: Report #: [id number] Path Case #: [id number] [address] [id number] MD Cristina Petersen MD Phone: [phone]
[2019-04-05 17:33] VITALS: BP 149/96
--- NOTE | 2019-04-05 19:14 | NUR ---
ASSUMED CARE AT SHIFT CHANGE, ALERT AND ORIENTED X4. SR AND ST WITH ACTIVITIES. VSS, AND AFEBRILE. C/O NAUSEA AND ABD PAIN MEDICATED NEEDED Q4H. SOFT DIET TODAY AND PATIENT TOLERATED DIET WELL. PROGRESSING TOWARD GOALS AND WILL CONTINUE WITH POC.
[2019-04-05 20:05] VITALS: BP 106/65
[2019-04-06 04:35] VITALS: BP 133/93
--- NOTE | 2019-04-06 05:03 | NUR ---
ASSESSMENT DOCUMENTED.PT RESTING IN NO ACUTE DISTRESS.A/OX4.VSS.PAIN TO ABD CONTROLLED WITH APIN MEDS.C/O NAUSEA THAT WAS CONTROLLLED WITH ZOFRAN.VOIDS VIA URINAL.PT MAY DISCHARGE TODAY TO HOME.
[2019-04-06 07:31] VITALS: BP 140/91
[2019-04-06] MEDS ORDERED: HYDROCODON-ACE1 EAC7 PO (07:35)
[2019-04-06 07:59] VITALS: BP 140/91
--- NOTE | 2019-04-06 11:21 | NUR ---
PLAN FOR DISCHARGE TODAY. PT STATES HE IS VERY ANXIOUS AND NAUSEOUS. CALLED AND DISCUSSED WITH DR GALVIN. ATIVAN X1 GIVEN. PT'S MOTHER AT BEDSIDE. WILL CONTINUE TO MONITOR PATIENT.
--- NOTE | 2019-04-06 12:03 | HC ---
[facility] [address] CONSULTATION Name: JE EVANS Room #: 212-P ADM IN M.R.#: [id number] Admission: 04/02/19 ������������������ Attend Phys: Arnie Nick MD Discharge: ������������������ Date of : 79 Report #: [id number] THIS REPORT FOR: //name// CC: Kwame Bedolla DATE OF SERVICE: 04/02/2019 REASON FOR CONSULTATION: Acute kidney injury, hyperkalemia, and lactic acidosis. HISTORY OF PRESENT ILLNESS: A 43-year-old patient with history of heavy alcohol abuse, questionable whether he continues to drink, although he has had some alcohol lately. Had admission two years ago characterized by gastric outlet obstruction, nausea, vomiting and lactic acidosis with a lactic acid of 7. He recovered, apparently has been reasonably well except for receiving multiple chronic treatments for black mold exposure including copious uyix-xow-fgnapws and various medications. He developed severe nausea and vomiting yesterday, vomiting at least 10 times and then developed weakness and confusion and was brought to the Emergency Room. Alcohol level was not checked. He was found to have marked metabolic acidosis, specifically lactic acidosis with a lactic acid level of 17 and anion gap metabolic acidosis. His serum creatinine that was 1.3, but devon to 1.9. Glucose then went up to 370 and along with a potassium up to 6.5. His AST was elevated. Calcium is low as well and in addition, he had a leukocytosis with 8-10% bands. PAST MEDICAL HISTORY: He has the alcohol history. He has had the previous history similar to this illness two years ago with nausea and vomiting. He apparently has a history of hypertension, diabetes mellitus. He has had previous appendectomy and he is a cigarette smoker as well. HOME MEDICATIONS: Include Protonix 40 mg daily, metformin 500 mg b.i.d., lisinopril 40 mg daily, Adderall 15 mg b.i.d. He is on a second line antipsychotic called ziprasidone and then multiple antioxidant and hjuh-foj-lbircer medications as mentioned above. REVIEW OF SYSTEMS: Cannot be taken. We did address his mother who is here. The patient is intubated and unable to answer questions. He apparently has had the severe nausea and vomiting. He has apparently been fighting possible effects of black mold exposure in his house. PHYSICAL EXAMINATION: GENERAL: He is a reasonably well-appearing, non-cachectic 43-year-old gentleman. He is on the ventilator, sedated [place] [address] CONSULTATION Name: JE EVANS Room #: [facility]-P [facility] IN .R.#: [id number] Admission: 04/02/19 ������������������ Attend Phys: Arnie Nick MD Discharge: ������������������ Date of : 79 Report #: [id number] SKIN: Otherwise, unremarkable. SKELETAL: Shows him to be well developed, well nourished. HEENT: Extraocular movements are full. Vision cannot be tested. There is no scleral icterus. Hearing cannot be tested. Endotracheal tube is in place. NECK: Supple, no carotid bruits. CHEST: Slightly coarse. HEART: Regular, tachycardic. ABDOMEN: Soft, but quiet. EXTREMITIES: Show no edema, well perfused. LABORATORY DATA: Hemoglobin 12.6; white count 28.9, down to 20.6; 10% bands, down to 8% bands; platelets 272. Currently, sodium 137, potassium 6.5, chloride 99, bicarbonate only 6, BUN 19, creatinine 1.9, glucose 370, calcium 6.6, phosphorus 5.8, magnesium 1.8. ASSESSMENT AND PLAN: Lactic acidosis is multifactorial. Some degree of acute kidney injury, some degree of elevated glucose, some degree of hypotension from nausea and vomiting and also certainly a major contribution from the metformin. Metformin is stopped. He has gotten copious IV fluids. His pH is reasonably good currently and we will be judicious with our use of bicarbonate and decide on that after rechecking his next levels at noon today. Hopefully with supportive care, he will do okay. Certainly, infection needs to be excluded and blood cultures have been taken and broad spectrum antibiotics have been administered. We will certainly follow the patient closely. Thank you for letting me see this difficult case. ��������������������������������������������� <ELECTRONICALLY SIGNED> ���������������������������������������� By: Parker Rosales MD ��������������������������������������������� 04/06/19 1203 [id number] Parker Rosales MD /nt
--- NOTE | 2019-04-06 15:33 | NUR ---
DISCHARGE INSTRUCTIONS DISCUSSED WITH PT AND HIS MOTHER AND THEY VERBALIZED UNDERSTANDING. IV'S DISCONTINUED AND PT DISCHARGED BY PRIVATE CAR WITH MOTHER.
== END 2019-04-06 14:07 | disposition home or self-care (01) | DRG 356 ==
LOC: ER 21:15 → 2N 04-02 01:25 → ICU 04-02 01:25 → EROBS 04-02 01:25 → ICU 04-02 01:42 → 2N 04-03 17:40 → ENTRNSPT 04-06 13:52 → 2N 04-06 14:07
PROVIDERS: Emergency Medicine; Internal Medicine Nephrology; Nurse Practitioner; ADMIT Family Medicine
PROC: 5A1935Z Respiratory Ventilation, Less than 24 Consecutive Hours (ICD-10-PCS; principal; 2019-04-02)
PROC: 0BH17EZ Insertion of Endotracheal Airway into Trachea, Via Natural or Artificial Opening (ICD-10-PCS; principal; 2019-04-02)
PROC: 0WJP4ZZ Inspection of Gastrointestinal Tract, Percutaneous Endoscopic Approach (ICD-10-PCS; principal; 2019-04-02)
PROC: 0DB68ZX Excision of Stomach, Via Natural or Artificial Opening Endoscopic, Diagnostic (ICD-10-PCS; 2019-04-04)
DX: K22.10 Ulcer of esophagus without bleeding (principal); J69.0 Pneumonitis due to inhalation of food and vomit; E87.2 Acidosis; N17.9 Acute kidney failure, unspecified; E78.00 Pure hypercholesterolemia, unspecified; E11.65 Type 2 diabetes mellitus with hyperglycemia; I95.9 Hypotension, unspecified; F98.8 Other specified behavioral and emotional disorders with onset usually occurring in childhood and adolescence; E87.5 Hyperkalemia; I10 Essential (primary) hypertension; K29.70 Gastritis, unspecified, without bleeding; K29.80 Duodenitis without bleeding; F10.10 Alcohol abuse, uncomplicated; E83.42 Hypomagnesemia; F41.9 Anxiety disorder, unspecified; E87.6 Hypokalemia; F17.210 Nicotine dependence, cigarettes, uncomplicated; E86.9 Volume depletion, unspecified; E83.119 Hemochromatosis, unspecified; K75.81 Nonalcoholic steatohepatitis (NASH); Z77.120 Contact with and (suspected) exposure to mold (toxic); Z90.49 Acquired absence of other specified parts of digestive tract; Z79.84 Long term (current) use of oral hypoglycemic drugs; Z79.899 Other long term (current) drug therapy; Z88.8 Allergy status to other drugs, medicaments and biological substances; Z83.3 Family history of diabetes mellitus
CPT/HCPCS: 10078; 10081; 50101; 50411; 50555; 50558; 51489; 52265; 52266; 53307; 54022; 54118; 55245; 56462; 56525; 56526; 62110; 62900; 70005

== ENCOUNTER 2019-07-23 12:38 | Emergency (ER) | payer BC, OTHER ==
[~2019-07-23] VITALS: Ht 172.7 cm; Wt 77.1 kg
[~2019-07-23 12:38] MED LIST changes: +B COMPLEX1 EACH PO; +EPA-DHA 720 SO1 EACH PO; +GEODON40 MG PO; +GLUCOPHAGE XR750 MG PO; +HYDROCODON-ACE1 EAC7 PO; +IBUPROFEN 200200 M1 PO; +L-THEANINE25 GM PO; +MELATONIN3 MG PO; +MILK THISTLE500 MG PO; +NAC600 MG PO; +NF NASAL; +NF PO; +PHYTOMULTI TAB1 EACH PO; +PROBIOTIC1 EAC2 PO; +PROZAC20 MG PO; +VITAMIN D250000 UNIT PO; +VITAMIN E400 UNIT PO
[2019-07-23 12:39] VITALS: BP 113/72
[2019-07-23] MEDS ORDERED: TRAMADOL 50 MG50 MG PO (13:27)
== END 2019-07-23 13:33 | disposition home or self-care (01) ==
LOC: ER 12:38
DX: S76.212A Strain of adductor muscle, fascia and tendon of left thigh, initial encounter (principal); E78.00 Pure hypercholesterolemia, unspecified; F17.210 Nicotine dependence, cigarettes, uncomplicated; Z90.49 Acquired absence of other specified parts of digestive tract; Z88.8 Allergy status to other drugs, medicaments and biological substances; X58.XXXA Exposure to other specified factors, initial encounter; Y93.89 Activity, other specified; Y92.89 Other specified places as the place of occurrence of the external cause; Y99.8 Other external cause status

== ENCOUNTER 2019-08-28 17:49 | Emergency (ER) | payer BC, OTHER ==
[~2019-08-28] VITALS: Ht 172.7 cm; Wt 77.1 kg
[~2019-08-28 17:49] MED LIST changes: +TRAMADOL 50 MG50 MG PO
[2019-08-28] MEDS ORDERED: ZOLOFT50 M1 PO (18:05)
[2019-08-28 18:38] LABS: ABSOLUTE NEUTROPHILS 4.1 thou/uL (1.4-8.2); EOSINOPHILS 0.7 % (0.0-3.0); HEMATOCRIT 41.1 % (42.0-52.0); HEMOGLOBIN 13.8 gm/dL (14.0-18.0); LYMPHOCYTES 24.2 % (24.0-44.0); MCH 28.5 pg (26.0-34.0); MCHC 33.5 g/dL (28.0-37.0); MCV 85.1 fL (80.0-100.0); PLATELET COUNT 255 thou/uL (150-400); POLYS 65.1 % (36.0-66.0); RBC 4.83 mil/uL (4.50-6.00); RDW 17.2 % (10.5-14.5); WBC 6.3 thou/uL (4.0-11.0)
[2019-08-28 18:46] LABS: URINE BILIRUBIN NEGATIVE (Negative); URINE BLOOD TRACE (Negative); URINE CLARITY CLEAR; URINE COLOR YELLOW; URINE GLUCOSE-RANDOM* NEGATIVE (Negative); URINE KETONES 1+ (Negative); URINE LEUKOCYTES-REFLEX NEGATIVE (Negative); URINE NITRITE-REFLEX NEGATIVE (Negative); URINE PROTEIN (DIPSTICK) NEGATIVE (Negative); URINE SPECIFIC GRAVITY 1.015 (1.005-1.035); URINE UROBILINOGEN 0.2 E.U./dl (0.2-1.0)
[2019-08-28 18:46] LABS: CALCIUM 9.3 mg/dL (8.5-10.1); POTASSIUM 3.8 mmol/L (3.5-5.1)
[2019-08-28 18:51] LABS: TOTAL BILIRUBIN 0.6 mg/dL (<0.1-1.0); TOTAL PROTEIN 7.3 g/dL (6.4-8.2)
[2019-08-28] MEDS ORDERED: NORCO 5-325 TA1 EAC1 PO (19:39)
[2019-08-28] MEDS ORDERED: ZOFRAN ODT4 MG PO (19:39)
[2019-08-28 20:34] VITALS: BP 116/75
--- NOTE | 2019-08-29 08:20 | EKG ---
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 President Payment: MANUEL : 1975 Requested By: Melva Tong Order Number: [id number] MD: Gary Fernandez Measurements Intervals [place] Rate: 77 P: 27 LA: 160 QRS: 34 QRSD: 95 T: 28 QT: 358 QTc: 406 Interpretive Statements Sinus rhythm Abnormal R-wave progression, early transition Compared to ECG 09/27/2018 12:34:55 Sinus tachycardia no longer present Electronically Signed On 08-29-2019 8:19:44 INTRAN[employer] SPECIALIST by Gary Fernandez [email or web address] <ELECTRONICALLY SIGNED> By: Gary Fernandez MD 08/29/19818 52 52 Gary Fernandez MD /TAMI
== END 2019-08-28 20:37 | disposition home or self-care (01) ==
LOC: ER 17:49
PROVIDERS: Emergency Medicine Emergency Medical Services
DX: R10.84 Generalized abdominal pain (principal); E78.00 Pure hypercholesterolemia, unspecified; F17.210 Nicotine dependence, cigarettes, uncomplicated; Z90.49 Acquired absence of other specified parts of digestive tract; Z88.8 Allergy status to other drugs, medicaments and biological substances

== ENCOUNTER 2019-09-05 12:37 | Inpatient (IN) | payer BC, OTHER ==
[2019-09-05] VITALS (24 sets, daily range): BP systolic 102–148; BP diastolic 49–87
[~2019-09-05] VITALS: Ht 172.7 cm; Wt 73.9 kg
[~2019-09-05 12:37] MED LIST changes: +NORCO 5-325 TA1 EAC1 PO; +ZOLOFT50 M1 PO
[2019-09-05 12:56] LABS: HEMATOCRIT 48.5 % (42.0-52.0); HEMOGLOBIN 15.6 gm/dL (14.0-18.0); MCH 28.6 pg (26.0-34.0); MCHC 32.1 g/dL (28.0-37.0); MCV 88.9 fL (80.0-100.0); PLATELET COUNT 433 thou/uL (150-400); RBC 5.45 mil/uL (4.50-6.00); RDW 17.9 % (10.5-14.5)
[2019-09-05 13:07] LABS: CALCIUM 9.1 mg/dL (8.5-10.1); CREATININE 1.1 mg/dL (0.7-1.3); POTASSIUM 3.6 mmol/L (3.5-5.1)
[2019-09-05 13:13] LABS: TOTAL BILIRUBIN 0.5 mg/dL (<0.1-1.0); TOTAL PROTEIN 8.4 g/dL (6.4-8.2)
[2019-09-05 13:55] LABS: URINE BILIRUBIN NEGATIVE (Negative); URINE BLOOD TRACE (Negative); URINE CLARITY CLEAR; URINE COLOR YELLOW; URINE GLUCOSE-RANDOM* NEGATIVE (Negative); URINE KETONES 1+ (Negative); URINE LEUKOCYTES-REFLEX NEGATIVE (Negative); URINE NITRITE-REFLEX NEGATIVE (Negative); URINE PROTEIN (DIPSTICK) NEGATIVE (Negative); URINE SPECIFIC GRAVITY >= 1.030 (1.005-1.035); URINE UROBILINOGEN 0.2 E.U./dl (0.2-1.0)
[2019-09-05 13:57] LABS: ABSOLUTE NEUTROPHILS 8.5 thou/uL (1.4-8.2); PLATELET ESTIMATE NORMAL
[2019-09-05 14:04] LABS: BE(vivo) -23.3 mmol/L (-2 to +3); HCO3 4.6 mmol/L (22.0-26.0); PO2 134.2 mmHg (80.0-100.0); sO2 97.6 % (92.0-98.0)
[2019-09-05 14:05] LABS: PCO2 15.9 mmHg (35.0-45.0); pH 7.081 (7.360-7.450)
--- NOTE | 2019-09-05 16:48 | NUR ---
VASCULAR ACCESS TEAM CONSULTED FOR ML. PT'S LABS,MEDSAND HISTORY REVIEWED. DISCUSSED BENEFITS AND RISK OF ML WITH PT,VERBALIZED UNDERSTANDING AND GAVE VERBAL CONSENT TO PROCEED. GENESIS IVLLAR WAS WIDELY PATENT WITH USG, 4FR POWER ML TRIMMED TO 14CM INSERTED TO 0CM WITH BRISK BR. ML RELEASED FOR IMMEDIATE USE PER PROTOCOL.
--- NOTE | 2019-09-05 17:12 | NUR ---
PT ARRIVED ON THE UNIT @ 1530 09/05/19, PT ARRIVED WITH THE ASSIST OF ONE RN, WITH FLUIDS RUNNING, WHEN CONNECTED TO MONITOR, PT VSS. DR GALVIN PAGED TO GIVE UPDATE ON PT STATUS AND DR GALVIN ASKED IF HE WANTED TO GO AHEAD WITH THE FULL SEPSIS PROTOCOL, DR GALVIN STATES NO AND THAT HE FEELS PT IS NOT SEPTIC THAT HIGH LACTIC ACIDOSIS IS DUE TO ALCOHOLISM AND THAT HE ONLY WANT TO CONSULT GI. DR GHOSH CALLED AND REPORT GIVEN ABOUT THIS PT, DR GHOSH VOICES THAT SHE WOULD PREFER ANOTHER SPECIALIST BE CONSULTED TO MANAGE ELECTROLYTES. DR SESAY CALLED AGAIN WITH AN UPDATE AND PAIN MEDICATION REQUEST FOR PATIENT, DR SESAY STATES TO CONSULT PULMONARY AND TO ORDER ATIVAN BASED ON THE ALCOHOL WITHDRAWAL STANDING ORDERS AND STATES NO NARCOTIC TO BE GIVEN TO THIS PT AT THIS TIME. SEPSIS SCREEN COMPLETED, PT DOES NOT FIT SEPSIS DIAGNOSIS.
[2019-09-05] MEDS ORDERED: ADDERALL 10 MG10 MG PO (18:40)
[2019-09-05 20:17] LABS: CALCIUM 8.8 mg/dL (8.5-10.1); POTASSIUM 4.3 mmol/L (3.5-5.1)
[2019-09-06] VITALS (22 sets, daily range): BP systolic 96–133; BP diastolic 37–91
[2019-09-06 05:29] LABS: BE(vivo) -2.7 mmol/L (-2 to +3); HCO3 21.8 mmol/L (22.0-26.0); PCO2 37.1 mmHg (35.0-45.0); PO2 90.7 mmHg (80.0-100.0); pH 7.387 (7.360-7.450); sO2 96.9 % (92.0-98.0)
[2019-09-06 05:42] LABS: ABSOLUTE NEUTROPHILS 4.5 thou/uL (1.4-8.2); BASOPHILS 0.6 % (0.0-2.0); EOSINOPHILS 0.8 % (0.0-3.0); HEMATOCRIT 40.2 % (42.0-52.0); LYMPHOCYTES 25.3 % (24.0-44.0); MCH 28.6 pg (26.0-34.0); MCHC 33.1 g/dL (28.0-37.0); MCV 86.4 fL (80.0-100.0); MONOCYTES 8.8 % (1.0-8.0); POLYS 64.5 % (36.0-66.0); RBC 4.66 mil/uL (4.50-6.00); RDW 17.8 % (10.5-14.5); WBC 6.9 thou/uL (4.0-11.0)
[2019-09-06 05:45] LABS: HEMOGLOBIN 13.3 gm/dL (14.0-18.0); PLATELET COUNT 319 thou/uL (150-400)
[2019-09-06 05:56] LABS: ALBUMIN 3.9 g/dL (3.4-5.0); CALCIUM 8.5 mg/dL (8.5-10.1); CREATININE 1.1 mg/dL (0.7-1.3); POTASSIUM 3.7 mmol/L (3.5-5.1); TOTAL PROTEIN 6.6 g/dL (6.4-8.2)
[2019-09-06 05:57] LABS: INR 1.1; PROTIME 11.7 Seconds (9.3-11.4)
--- NOTE | 2019-09-06 07:03 | HC ---
[facility] [place] [address] CONSULTATION Name: JE EVANS Room #: 244-P ADM IN M.R.#: [id number] Admission: 09/05/19 Attend Phys: Arnie Nick MD Discharge: Date of : 79 Report #: [id number] THIS REPORT FOR: //name// CC: Arnie Nick MD DATE OF SERVICE: 09/05/2019 GASTROENTEROLOGY CONSULTATION This is a patient of Dr. Arnie Nick. INDICATION FOR CONSULTATION: The patient presented with severe nausea, vomiting and burning pain just to the right of his umbilicus. He is in severe alcoholic ketoacidosis at this time that I think is probably just related to his alcohol intake. He does have mild thickening of his colon on CT scan, so may have some colitis of some sort and he has been having diarrhea for the last few days while he has been on an alcohol binge. The patient states that his periumbilical pain has almost resolved and that now he has pain all across his lower back. It is possible that he may also have a viral infection of some sort. Previously when he presented without alcoholic ketoacidosis, his abdominal exam was so impressive that he was taking for an exploratory laparoscopy and it was discovered to be normal. We would like to avoid doing that again now that we know his presentations. The CT scan also showed the dilated stomach, which might indicate a gastric outlet obstruction or gastroparesis. PAST MEDICAL HISTORY: Significant for hypertension, previous bouts of alcoholic ketoacidosis, diabetes mellitus, fatty liver, gastritis and esophagitis, a history of pancreatitis, attention deficit disorder, alcohol abuse, tobacco abuse, hyperlipidemia with hypertriglyceridemia. He has had a history of cholecystitis, leukopenia and thrombocytopenia. PAST SURGICAL HISTORY: Significant for an appendectomy. ALLERGIES: DEMEROL. MEDICATIONS: Prior to admission included fluoxetine, Zofran, lisinopril, Protonix, Adderall, Geodon, Tums and vitamin supplements. He denies taking a lot of aspirin or acetaminophen, but he does take occasional acetaminophen. He stopped taking metformin the last time that he presented with lactic ketoacidosis at the direction of Dr. Rosales. SOCIAL HISTORY: He does smoke about half pack of cigarettes per day. He drinks alcohol in varying amounts, but ordinarily does not drink, he just goes on [facility] [address] [place] [address] CONSULTATION Name: JE EVANS Room #: 244-P [facility] IN .R.#: [id number] Admission: 09/05/19 Attend Phys: Arnie Nick MD Discharge: Date of : 79 Report #: [id number] binges for a few days every once in a while and gets incredibly sick and presents to the hospital for help getting over it. He has never had a blood transfusion. FAMILY HISTORY: Negative for colon polyps, colon cancer, Crohn's disease and ulcerative colitis. REVIEW OF SYSTEMS: He denies any dysphagia or odynophagia. He does have gastroesophageal reflux and he takes Protonix at home and it along with Carafate control his GERD symptoms fairly well. He has no history of a hiatal hernia, but he did have a history of peptic ulcer disease, gastritis, and esophagitis. He complains of nausea and vomiting that have been going on for the last 2-3 days. His appetite has been decreased and he has lost 40 pounds in the last year unintentionally. HE SAYS THAT HE HAS AN ALLERGY TO BLACK MOLD. He has also had some diarrhea that he thinks is related to some chocolate ice cream ingestion in the last few days. On CT scan, he does have a colonic thickening though that may indicate that he has actual colitis. He denies any hematemesis, hematochezia or melena. His urine is not dark. His stools are not light or bloody. There is no melena. He has a history of a fatty liver. Denies any history of jaundice, hepatitis, or pancreatitis. He still has his gallbladder and has had a history of cholecystitis, but has never had any surgery for it. PHYSICAL EXAMINATION: GENERAL: Reveals a well-developed, well-nourished 44-year-old white male, in no apparent distress at the time of the examination. He is awake, alert, oriented x 4 and cooperative and very pleasant to converse with. HEENT: He is normocephalic and atraumatic and anicteric. HEART: Rate and rhythm are regular with a normal S1 and S2. LUNGS: Clear bilaterally. ABDOMEN: Mildly distended, but soft. Bowel sounds are present in all 4 quadrants. There is diffuse tenderness to palpation along the entire colon. The burning pain just to the right of his umbilicus appears to have been for the most part resolved. EXTREMITIES: Warm and dry. No peripheral cyanosis, clubbing or edema. NEUROLOGIC: He appears grossly intact without lateralizing signs, but I did not check him extensively neurologically speaking. SIGNIFICANT LABORATORY DATA: His sodium was 142, potassium 3.6, chloride 100, CO2 is 9, anion gap 33, BUN 10, creatinine 1.1, glucose was 64. Serum osmolality is pending. AST 30, ALT 41, alkaline phosphatase 92, total bilirubin is 0.5, amylase and lipase are within normal limits. Albumin is 5. Lactic acid was 12.4 on admission, and a repeat 3 hours later showed it down to 8.6 and this is just with simple hydration. Alcohol level 202. He is a hemochromatosis gene carrier, does have an iron saturation of 81%, but I am not certain if it is reproducible. Iron levels were very high, though. I have not seen a ferritin yet. WBCs are 12.0, hemoglobin 15.6, hematocrit 48.5. Indices are within [facility] [address] [place] [address] CONSULTATION Name: JE EVANS Room #: 244-P [facility] IN [facility]#: [id number] Admission: 09/05/19 Attend Phys: Arnie Nick MD Discharge: Date of : 79 Report #: [id number] normal limits, RDW is 17.9. Urinalysis shows pH of 5, color is yellow and clear, specific gravity is 1.030, ketones are 1+, there is trace of blood and 0.2 urobilinogen, nitrites are negative. Blood gas shows a pH of 7.081, pCO2 is 15.9, pO2 is 134.2, bicarbonate was 4.6, base excess was 23.3, total CO2 is 5.1, lactate 9.84. Calculated O2 saturation is 97.6. Carboxyhemoglobin 1.5 and methemoglobin 0.3, this was on room air. Blood cultures were done x 2. CT scan showed mild thickening of the colon and marked fluid and gaseous distention of the stomach. There is no evidence of any bowel obstruction, but he may have a gastric outlet obstruction. There was marked distention of the urinary bladder, no bladder wall thickening. There is hepatic steatosis. IMPRESSIONS: 1. Severe alcoholic ketoacidosis. We need to rule out sepsis and other infectious processes as well. The patient received one dose of Zosyn in the Emergency Room, and he appears to have a diffuse mild colitis on CT. 2. Periumbilical pain, burning in nature, just to the right of the umbilicus. It has almost completely resolved at this point. The patient has severe abdominal pain with previous bouts of alcohol bingeing and alcoholic ketoacidosis and ended up with exploratory laparoscopy that was negative. He also has nausea and vomiting and CT scan does show a dilated stomach. He could have gastroparesis or gastric outlet obstruction. We will recheck an upright of the abdomen in the morning. The Zosyn at this time seems to be controlling his vomiting and his nausea. 3. Alcohol bingeing this past week, was one of his binges. 4. Nicotine use. 5. History of bipolar depression and schizophrenia. The patient is on Geodon for these. He also takes Adderall for attention deficit order. 6. Gastroesophageal reflux, controlled by PPIs. 7. Diabetes mellitus and during this admission, he has some hypoglycemic episodes. We will need to monitor his blood sugar closely for hypoglycemia. 8. Hyperlipidemia. 9. Hypertriglyceridemia. 10. History of gastritis and esophagitis and history of cholecystitis. 11. History of pancreatitis. 12. History of leukopenia and thrombocytopenia. 13. Attention deficit disorder. 14. Gluten and lactose sensitivity. Previous duodenal biopsies do not confirm the presence of celiac disease, but he may have been adhering to a gluten-free diet that may have changed his biopsies back to normal. He did eat some chocolate ice cream during this binge and he thinks that this may have caused the diarrhea that he has developed as he is lactose intolerant. RECOMMENDATIONS: 1. My recommendations were to continue the IV fluid, rate at 100 an hour, he is on 1/2 NS. We will check a BMP tonight to make certain that his potassium is not getting too low. We will continue his Zosyn for now, I will ask the [facility] [address] [place] [address] CONSULTATION Name: JE EVANS Room #: 244-P [facility] IN M.R.#: [id number] Admission: 09/05/19 Attend Phys: Arnie Nick MD Discharge: Date of : 79 Report #: [id number] pharmacy to dose that. We will check stool for culture and sensitivity, C. diff and fecal leukocytes. Blood cultures have already been done. 2. He had a dilated bladder on CT scan, so we will scan his bladder and if it is greater than 400 mL, we will straight cath him and send that urine to lab for culture and sensitivity and urinalysis. 3. We will recheck his CMP, CBC with diff, INR, ABG and lactate in the morning. We will have to give him Protonix IV push for his gastroesophageal reflux as he is vomiting and cannot take p.o. Protonix at this time, even though he is not bleeding, the fact that he is having vomiting and has a dilated stomach, I think Protonix is a good idea for him right now. Thank you very much once again for allowing me to participate in his care, Dr. Nick. <ELECTRONICALLY SIGNED> By: Daniela Ji DO 09/06/19 0703 [id number] Daniela Ji DO /nt
[2019-09-07] VITALS (15 sets, daily range): BP systolic 107–137; BP diastolic 54–104
[2019-09-07 09:29] LABS: HEMATOCRIT 40.6 % (42.0-52.0); HEMOGLOBIN 13.4 gm/dL (14.0-18.0); MCH 28.6 pg (26.0-34.0); MCHC 33.1 g/dL (28.0-37.0); MCV 86.5 fL (80.0-100.0); RBC 4.7 mil/uL (4.50-6.00); RDW 17.2 % (10.5-14.5); WBC 4.9 thou/uL (4.0-11.0)
[2019-09-07 09:51] LABS: ALBUMIN 3.6 g/dL (3.4-5.0); CALCIUM 8.9 mg/dL (8.5-10.1); CREATININE 1.1 mg/dL (0.7-1.3); POTASSIUM 3.3 mmol/L (3.5-5.1); TOTAL PROTEIN 6.3 g/dL (6.4-8.2)
--- NOTE | 2019-09-07 10:19 | NUR ---
Nutrition: Consult for nausea. Pt with h/o ETOH, HTN, HLD, pancreatitis. Admitted with colitis - improving. BG 158, albumin 3.6. Regular diet ordered now. Poor nutrition-quality of life R/T lifestyle AEB ETOH abuse. GOALS: good po intake at meals, recommend MVI use. No other nutrition interventions at this time. Mild risk,
--- NOTE | 2019-09-07 11:49 | NUR ---
CWAL SCREENING COMPLETED. PT'S CWAL HAS BEEN <8 FOR 4 SCREENINGS, 24 HOURS CONSECUTIVE.
--- NOTE | 2019-09-07 16:38 | NUR ---
ASSUMED CARE AT 0700. PT C/O PAIN AND ANXIETY AND NAUSEA AT THE SAME TIME AND ONLY WHEN THOSE MEDICATIONS NEXT DOSE ARE AVAILABLE. PT'S IV ANTI ANXIETY MEDICATION D/C AND PT WAS UPSET. PT CALLS EXACTLY 4 HOURS AFTER EACH MED IS GIVEN FOR NEXT PRN DOSE. PT NAPPED SEVERAL TIMES TODAY AND VISITED WITH HIS FATHER FOR A FEW HOURS BEDSIDE WELL. PT TRANSFERRED TO . REPORT CALLED TO AAKASH RICHARDSON. CWAL HAS BEEN D/C DUE TO CWAL SCORES OF <8 CONSECUTIVELY FOR THE PAST 24 HOURS.
--- NOTE | 2019-09-07 18:39 | NUR ---
Patient arrived from ICU approx. 1500 this afternoon. Patient remains in contact precautions. Patient placed on telemetry, vitals taken by nurse aide. Patient SR on the monitor. Patient complains of nausea and back pain. IV zofran and oxycodone given when due. Patient also recieved PO ativan for anxiety although patient has appeared to be resting comfortably without anxiousness or restlessness noted. Right upper midline and right AC peripheral IV intact. Possible dc tomorrow per doc notes. Patient progressing toward plan of care goals.
[2019-09-08 04:15] VITALS: BP 113/75
[2019-09-08 07:49] VITALS: BP 114/79
[2019-09-08 11:14] VITALS: BP 118/76
[2019-09-08 14:59] VITALS: BP 114/82
[2019-09-08 19:44] VITALS: BP 115/74
[2019-09-09 03:54] VITALS: BP 110/72
[2019-09-09 05:24] LABS: HEMATOCRIT 39.3 % (42.0-52.0); HEMOGLOBIN 13.1 gm/dL (14.0-18.0); MCH 28.8 pg (26.0-34.0); MCHC 33.3 g/dL (28.0-37.0); MCV 86.5 fL (80.0-100.0); RBC 4.54 mil/uL (4.50-6.00); RDW 16.4 % (10.5-14.5); WBC 6.2 thou/uL (4.0-11.0)
[2019-09-09 07:47] VITALS: BP 113/72
[2019-09-09] MEDS ORDERED: AUGMENTIN 875-1 EACH PO (09:50)
[2019-09-09] MEDS ORDERED: CHLORDIAZEPOXIDE5 M2 PO (10:13)
[2019-09-09 11:28] VITALS: BP 118/73
[2019-09-09 12:44] VITALS: BP 118/73
--- NOTE | 2019-09-09 14:15 | NUR ---
Discharge orders from Dr Holland. Pt has reported abdominal discomfort and nausea today. Reviewed discharge instructions with patient. Dr Nick had left medication scripts for patient. Dr Holland aware and instructed this nurse to send them home with patient along with those he ordered. See discharge instructions. Pt's father here to take him home. Pt taken down to car by community outreach manager. See discharge orders.
[2019-09-09 14:20] VITALS: BP 118/73
== END 2019-09-09 14:35 | disposition home or self-care (01) | DRG 872 ==
LOC: ER 12:37 → EROBS 15:04 → ICU 15:29 → 3W 09-07 15:00
PROVIDERS: Hospitalist; Internal Medicine Gastroenterology; Pediatrics; Physician Assistant; ADMIT Family Medicine
PROC: 05HB33Z Insertion of Infusion Device into Right Basilic Vein, Percutaneous Approach (ICD-10-PCS; principal; 2019-09-05)
DX: A41.9 Sepsis, unspecified organism (principal); E78.00 Pure hypercholesterolemia, unspecified; E78.5 Hyperlipidemia, unspecified; K52.9 Noninfective gastroenteritis and colitis, unspecified; E11.9 Type 2 diabetes mellitus without complications; F17.210 Nicotine dependence, cigarettes, uncomplicated; F31.9 Bipolar disorder, unspecified; K21.9 Gastro-esophageal reflux disease without esophagitis; E78.1 Pure hyperglyceridemia; F10.229 Alcohol dependence with intoxication, unspecified; F98.8 Other specified behavioral and emotional disorders with onset usually occurring in childhood and adolescence; D64.9 Anemia, unspecified; F41.9 Anxiety disorder, unspecified; K29.20 Alcoholic gastritis without bleeding; Z90.49 Acquired absence of other specified parts of digestive tract; Z83.3 Family history of diabetes mellitus; Z88.8 Allergy status to other drugs, medicaments and biological substances
CPT/HCPCS: 10078; 10879; 27000

== ENCOUNTER 2019-11-05 13:54 | Inpatient (IN) | payer OTHER ==
[~2019-11-05] VITALS: Ht 172.7 cm; Wt 74.5 kg
[~2019-11-05 13:54] MED LIST changes: +ADDERALL 10 MG10 MG PO; +AUGMENTIN 875-1 EACH PO; +CHLORDIAZEPOXIDE5 M2 PO
[2019-11-05 13:56] VITALS: BP 122/77
[2019-11-05 14:10] LABS: ABSOLUTE NEUTROPHILS 10.9 thou/uL (1.4-8.2); BASOPHILS 0.9 % (0.0-2.0); EOSINOPHILS 0.1 % (0.0-3.0); HEMATOCRIT 49.6 % (42.0-52.0); HEMOGLOBIN 16.4 gm/dL (14.0-18.0); LYMPHOCYTES 13.2 % (24.0-44.0); MCH 28.7 pg (26.0-34.0); MCHC 33.1 g/dL (28.0-37.0); MCV 86.5 fL (80.0-100.0); MONOCYTES 4.9 % (1.0-8.0); PLATELET COUNT 355 thou/uL (150-400); POLYS 80.9 % (36.0-66.0); RBC 5.74 mil/uL (4.50-6.00); RDW 14.2 % (10.5-14.5); WBC 13.5 thou/uL (4.0-11.0)
[2019-11-05 14:16] LABS: CALCIUM 9.6 mg/dL (8.5-10.1); CREATININE 1.2 mg/dL (0.7-1.3); POTASSIUM 3.5 mmol/L (3.5-5.1)
[2019-11-05 14:22] LABS: TOTAL BILIRUBIN 0.7 mg/dL (<0.1-1.0)
[2019-11-05 14:33] LABS: URINE BILIRUBIN NEGATIVE (Negative); URINE BLOOD TRACE (Negative); URINE CLARITY CLEAR; URINE COLOR YELLOW; URINE GLUCOSE-RANDOM* NEGATIVE (Negative); URINE KETONES 2+ (Negative); URINE LEUKOCYTES-REFLEX NEGATIVE (Negative); URINE NITRITE-REFLEX NEGATIVE (Negative); URINE PROTEIN (DIPSTICK) NEGATIVE (Negative); URINE SPECIFIC GRAVITY >= 1.030 (1.005-1.035); URINE UROBILINOGEN 0.2 E.U./dl (0.2-1.0)
[2019-11-05 16:01] LABS: BE(vivo) -6.8 mmol/L (-2 to +3); HCO3 17.4 mmol/L (22.0-26.0); PCO2 VENOUS 31.4 mmHg (41.0-51.0); PO2 VENOUS 39.4 mmHg (35.0-45.0)
[2019-11-05 16:05] LABS: CALCIUM 8.8 mg/dL (8.5-10.1)
[2019-11-05 16:27] VITALS: BP 108/62
[2019-11-05 16:33] LABS: MAGNESIUM 1.8 mg/dL (1.8-2.4); PHOSPHORUS 3.7 mg/dL (2.5-4.9)
[2019-11-05 16:49] VITALS: BP 108/62
[2019-11-05 17:14] VITALS: BP 116/65
[2019-11-05 19:02] VITALS: BP 127/67
[2019-11-05 23:52] VITALS: BP 109/73
[2019-11-06 03:58] VITALS: BP 131/71
[2019-11-06 07:23] VITALS: BP 134/75
[2019-11-06 16:34] VITALS: BP 132/84
[2019-11-06 20:30] VITALS: BP 123/86
[2019-11-07 04:05] VITALS: BP 112/74
[2019-11-07 07:25] VITALS: BP 129/88
[2019-11-07] MEDS ORDERED: LORAZEPAM 1 MG T1 MG PO (11:35)
[2019-11-07] MEDS ORDERED: OXYCODONE HCL 55 MG PO (11:35)
[2019-11-07] MEDS ORDERED: CARAFATE 11 GM/10 M1 PO (11:36)
[2019-11-07 15:23] VITALS: BP 134/95
== END 2019-11-07 18:35 | DRG 392 ==
LOC: ER 13:54 → 3W 16:38 → EROBS 16:38 → 3W 17:11
PROVIDERS: Emergency Medicine; Physician Assistant; ADMIT Family Medicine
DX: K29.20 Alcoholic gastritis without bleeding (principal); E78.00 Pure hypercholesterolemia, unspecified; F10.10 Alcohol abuse, uncomplicated; E86.0 Dehydration; F17.210 Nicotine dependence, cigarettes, uncomplicated; G89.29 Other chronic pain; M54.9 Dorsalgia, unspecified; F41.9 Anxiety disorder, unspecified; F98.8 Other specified behavioral and emotional disorders with onset usually occurring in childhood and adolescence; Z90.49 Acquired absence of other specified parts of digestive tract; Z88.8 Allergy status to other drugs, medicaments and biological substances; Z91.011 Allergy to milk products; Z79.899 Other long term (current) drug therapy
CPT/HCPCS: 10879

== ENCOUNTER 2020-01-02 22:51 | Inpatient (IN) | payer OTHER ==
[~2020-01-02] VITALS: Ht 177.8 cm; Wt 75.3 kg
[~2020-01-02 22:51] MED LIST changes: +CARAFATE 11 GM/10 M1 PO; +LORAZEPAM 1 MG T1 MG PO
[2020-01-02 22:52] VITALS: BP 105/58
[2020-01-02 23:10] LABS: ABSOLUTE NEUTROPHILS 12.3 thou/uL (1.4-8.2); BASOPHILS 0.8 % (0.0-2.0); EOSINOPHILS 0.2 % (0.0-3.0); HEMATOCRIT 44.3 % (42.0-52.0); HEMOGLOBIN 14.8 gm/dL (14.0-18.0); LYMPHOCYTES 12.7 % (24.0-44.0); MCH 28.3 pg (26.0-34.0); MCHC 33.5 g/dL (28.0-37.0); MCV 84.6 fL (80.0-100.0); PLATELET COUNT 369 thou/uL (150-400); POLYS 81.3 % (36.0-66.0); RBC 5.24 mil/uL (4.50-6.00); WBC 15.1 thou/uL (4.0-11.0)
[2020-01-02 23:18] LABS: CALCIUM 9.1 mg/dL (8.5-10.1); POTASSIUM 3.5 mmol/L (3.5-5.1)
[2020-01-03 00:38] LABS: URINE BILIRUBIN NEGATIVE (Negative); URINE BLOOD NEGATIVE (Negative); URINE CLARITY CLEAR; URINE COLOR YELLOW; URINE GLUCOSE-RANDOM* NEGATIVE (Negative); URINE KETONES 1+ (Negative); URINE LEUKOCYTES-REFLEX NEGATIVE (Negative); URINE NITRITE-REFLEX NEGATIVE (Negative); URINE PROTEIN (DIPSTICK) NEGATIVE (Negative); URINE SPECIFIC GRAVITY >= 1.030 (1.005-1.035); URINE UROBILINOGEN 0.2 E.U./dl (0.2-1.0)
[2020-01-03 01:22] LABS: BE(vivo) -14.3 mmol/L (-2 to +3); HCO3 9.9 mmol/L (22.0-26.0); PO2 119.9 mmHg (80.0-100.0); sO2 98.1 % (92.0-98.0)
[2020-01-03 01:24] LABS: PCO2 20.8 mmHg (35.0-45.0); pH 7.296 (7.360-7.450)
[2020-01-03 01:47] LABS: MAGNESIUM 1.9 mg/dL (1.8-2.4); PHOSPHORUS 4.9 mg/dL (2.5-4.9)
[2020-01-03 02:42] VITALS: BP 115/57
[2020-01-03 03:10] VITALS: BP 131/83
--- NOTE | 2020-01-03 04:52 | NUR ---
ASSUMED CARE OF PATIENT AT APPROX 0315 FROM ED. PATIENT COMPLAINING OF SHARP STOMACH PAIN AT THE UMBILICUS, PAIN MEDICATION REQUESTED. PATIENT COMPLAINING OF NAUSEA, NAUSEA MEDICATION REQUESTED. ADMISSION COMPLETED. PATIENT IS COOPERATIVE WITH QUESTIONS, HOWEVER HE IS INCREDIBLY TIRED AND KEEPS FALLING ASLEEP DURING QUESTIONS. HE IS SLIGHTLY AGGITATED BUT DOES NOT EXHIBIT ANY TREMORS. PATIENT TO CONTINUE WITH POC.
[2020-01-03 07:29] LABS: HEMATOCRIT 37.8 % (42.0-52.0); MCH 28.2 pg (26.0-34.0); MCHC 33.2 g/dL (28.0-37.0); MCV 85.1 fL (80.0-100.0); RBC 4.45 mil/uL (4.50-6.00); RDW 14.9 % (10.5-14.5); WBC 13.1 thou/uL (4.0-11.0)
[2020-01-03 07:52] LABS: CALCIUM 8.3 mg/dL (8.5-10.1); CREATININE 0.8 mg/dL (0.7-1.3)
[2020-01-03 07:53] LABS: HEMOGLOBIN 12.5 gm/dL (14.0-18.0)
[2020-01-03 08:00] VITALS: BP 132/73
--- NOTE | 2020-01-03 09:12 | EKG ---
[facility] [place] [address] ELECTROCARDIOGRAM REPORT Name: JE EVANS Room #: 216-P ADM IN M.R.#: [id number] Admission: 01/03/20 Attend Phys: Bebeto Monroy MD Discharge: Date of : 79 Report #: [id number] THIS REPORT FOR: cc: Arnie Nick MD, Neal A. MD Lundgren, Craig H. 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
[2020-01-03 11:01] LABS: HEMOGLOBIN 12.8 gm/dL (14.0-18.0); MCH 28.2 pg (26.0-34.0); MCHC 33.7 g/dL (28.0-37.0); MCV 83.7 fL (80.0-100.0); RBC 4.54 mil/uL (4.50-6.00); RDW 14.7 % (10.5-14.5); WBC 10.5 thou/uL (4.0-11.0)
[2020-01-03 11:17] LABS: ALBUMIN 3.8 g/dL (3.4-5.0); DIRECT BILIRUBIN 0.1 mg/dL (<0.1-0.2); TOTAL BILIRUBIN 0.9 mg/dL (<0.1-1.0); TOTAL PROTEIN 6.4 g/dL (6.4-8.2)
[2020-01-03 11:18] LABS: ALBUMIN 3.7 g/dL (3.4-5.0); CALCIUM 8.2 mg/dL (8.5-10.1); CREATININE 0.8 mg/dL (0.7-1.3); POTASSIUM 3.8 mmol/L (3.5-5.1); TOTAL BILIRUBIN 0.9 mg/dL (<0.1-1.0); TOTAL PROTEIN 6.4 g/dL (6.4-8.2)
[2020-01-03 12:11] VITALS: BP 125/85
--- NOTE | 2020-01-03 14:47 | NUR ---
INITIAL ASSESSMENT: Received consult for ETOH withdrawal plan. SW reviewed chart and spoke with nursing. Pt was admitted from home due to alcoholic ketoacidosis. Psych consulted and recommends pt do outpatient AA/counseling services. Pt known to SW from previous hospitalizations. Pt was discharged from [facility] to [facility] on 11/07/19 for inpt ETOH treatment. MEGAN spoke with pt via phone. Introduced role of SW. Pt is alert/orientated x 4. Pt reports he lives at home alone. Prior to admission, pt was independent with ADLs. Pt's parents are involved and supportive in pt's care. Pt states that the was at [facility] for inpt ETOH treatment for 2 weeks and then did outpatient treatment for 2-weeks. Pt was sober for about 30 days and started drinking 3 days ago. Pt states he is planning on returning to work on 01/08. SW discussed discharge plans with pt. Pt states he is agreeable with finding an outpatient provider. Plan is for patient to discharge home when medically stable. MEGAN is following to assist as needed with discharge planning.
[2020-01-03 16:00] VITALS: BP 118/70
--- NOTE | 2020-01-03 17:47 | NUR ---
ASSUMED CARE PT SHIFT CHANGE. ASSESSMENTS CHARTED. MEDS GIVEN PER DEC. PT ALERT AND ORIENTED, VSS. O2 SATS WNL ON ROOM AIR. C/O ABDOMINAL PAIN AND NAUSEA- MANAGED WITH IV PAIN AND ANTIEMETIC MEDS. PT HAD LOW GRADE TEMP THIS SHIFT, PO TYLENOL GIVEN. CIWA PROTOCOL ASSESSMENTS CHARTED. MEDS GIVEN NEEDED. FALL PRECAUTIONS IN PLACE. PT SEEN BY DR ARCOS- SEE CONSULTATION NOTES. PT CURRENTLY RESTING IN BED WITH NO NEEDS. WILL CONTINUE TO MONITOR AND FOLLOW POC.
[2020-01-03 20:08] VITALS: BP 107/64
[2020-01-04] VITALS (8 sets, daily range): BP systolic 113–132; BP diastolic 76–88
--- NOTE | 2020-01-04 05:42 | NUR ---
PT RESTING QUIETLY IN ROOM, PRN NV MEDS AND PAIN MEDS GIVEN, VSS, IV INFUSING TO R AC, UP ADLIB IN ROOM, WILL CON'T TO MONITOR PER PPOC.
--- NOTE | 2020-01-04 17:07 | NUR ---
PT CARE ASSUMED AT APPROXIMATELY 0700. PT ASSESSMENTS CHARTED. PT MEDICATION CHARTED. PT ANXIETY MODERATELY HIGH. PT CALLNG REGULARLY FOR PAIN RELIEVER AND ANXIETY MEDICATION. VSS.
[2020-01-05 04:34] VITALS: BP 111/78
[2020-01-05 05:45] LABS: CALCIUM 8.6 mg/dL (8.5-10.1); CREATININE 0.9 mg/dL (0.7-1.3); MAGNESIUM 1.9 mg/dL (1.8-2.4); PHOSPHORUS 3.8 mg/dL (2.5-4.9)
[2020-01-05 07:50] VITALS: BP 128/91
--- NOTE | 2020-01-05 08:16 | NUR ---
ASSUME CARE 1900. PT/VITALS STABLE. CONSTANT ABDOMINAL PAIN INDICATED. UP AD SID. NO ANXIETY, TREMORS, NIGHT SWEATS, OR HEADACHES NOTED THROGUH THE NIGHT. SR/SB ON MONITOR. PROGRESSING WELL WITH POC. ASSESSMENT CHARTED. ADEQUATE REST NOTED THROUGH THE NIGHT. NO SIGNS OF WITHDRAWAL. A/O X 4. PLAN IS TO CONTINUE TO HYDRATION AND ABX WELL PSYCH CONSULT. WILL CONTINUE TO MONITOR AND FOLLOW WITH POC
[2020-01-05] MEDS ORDERED: ZIPRASIDONE HCL20 M1 PO (08:47)
[2020-01-05] MEDS ORDERED: ZOFRAN ODT4 MG PO (08:47)
[2020-01-05] MEDS ORDERED: VITAMIN B-1100 M2 PO (08:48)
[2020-01-05] MEDS ORDERED: CHLORDIAZEPOXID25 M1 PO (08:49)
[2020-01-05 10:25] VITALS: BP 128/91
--- NOTE | 2020-01-05 11:27 | NUR ---
ASSUMED CARE AT SHIFT CHANGE, ALERT AND ORIENTED X4. CIWA OF 8, AND ASSESSMENT DOCUMENTED. DISCHAGE AND MEDICATION INSTRUCTIONS GIVEN TO PATIENT. DISCHARGED HOME.
== END 2020-01-05 11:37 | disposition home or self-care (01) | DRG 392 ==
LOC: ER 22:51 → EROBS 01-03 02:25 → 2N 01-03 02:25
PROVIDERS: Emergency Medicine; Family Medicine; Nurse Practitioner Family; ADMIT Hospitalist
DX: K29.20 Alcoholic gastritis without bleeding (principal); E87.2 Acidosis; E78.00 Pure hypercholesterolemia, unspecified; E78.5 Hyperlipidemia, unspecified; F32.9 Major depressive disorder, single episode, unspecified; I10 Essential (primary) hypertension; F17.210 Nicotine dependence, cigarettes, uncomplicated; F41.9 Anxiety disorder, unspecified; F10.129 Alcohol abuse with intoxication, unspecified; G89.29 Other chronic pain; E88.89 Other specified metabolic disorders; M54.9 Dorsalgia, unspecified; Z71.6 Tobacco abuse counseling; Z90.49 Acquired absence of other specified parts of digestive tract; Z88.8 Allergy status to other drugs, medicaments and biological substances; Z91.011 Allergy to milk products
CPT/HCPCS: 10081

== ENCOUNTER 2020-01-31 16:53 | Emergency (ER) | payer OTHER ==
[~2020-01-31] VITALS: Ht 175.3 cm; Wt 77.1 kg
[~2020-01-31 16:53] MED LIST changes: +CARAFATE1 GM PO; +CHLORDIAZEPOXID25 M1 PO; +PEPCID20 MG PO; +PROTONIX40 M2 PO; +ZIPRASIDONE HCL20 M1 PO
[2020-01-31 17:22] LABS: ABSOLUTE NEUTROPHILS 12.4 thou/uL (1.4-8.2); BASOPHILS 1.2 % (0.0-2.0); EOSINOPHILS 0.1 % (0.0-3.0); HEMATOCRIT 49.2 % (42.0-52.0); HEMOGLOBIN 16.4 gm/dL (14.0-18.0); LYMPHOCYTES 13.1 % (24.0-44.0); MCH 28.6 pg (26.0-34.0); MCHC 33.4 g/dL (28.0-37.0); MCV 85.7 fL (80.0-100.0); MONOCYTES 4.3 % (1.0-8.0); PLATELET COUNT 338 thou/uL (150-400); POLYS 81.3 % (36.0-66.0); RBC 5.74 mil/uL (4.50-6.00); RDW 16.1 % (10.5-14.5); WBC 15.3 thou/uL (4.0-11.0)
[2020-01-31 17:38] LABS: ANION GAP 33 mmol/L (7-16); CALCIUM 9.5 mg/dL (8.5-10.1); CHLORIDE 94 mmol/L (98-107); CO2 12 mmol/L (21-32); CREATININE 1.2 mg/dL (0.7-1.3); GLUCOSE 71 mg/dL (74-106); LIPASE 154 U/L (73-393); POTASSIUM 3.5 mmol/L (3.5-5.1); SGOT 35 U/L (15-37); SGPT 43 U/L (30-65); SODIUM 139 mmol/L (136-145); TOTAL BILIRUBIN 0.7 mg/dL (<0.1-1.0); TOTAL PROTEIN 8.5 g/dL (6.4-8.2); TROPONIN-I <0.06 ng/mL (<0.06)
[2020-01-31 17:48] LABS: BUN 17 mg/dL (7-18)
[2020-01-31 17:49] LABS: URINE BILIRUBIN NEGATIVE (Negative); URINE BLOOD TRACE (Negative); URINE CLARITY CLEAR; URINE COLOR YELLOW; URINE GLUCOSE-RANDOM* NEGATIVE (Negative); URINE KETONES 1+ (Negative); URINE LEUKOCYTES-REFLEX NEGATIVE (Negative); URINE NITRITE-REFLEX NEGATIVE (Negative); URINE PROTEIN (DIPSTICK) NEGATIVE (Negative); URINE SPECIFIC GRAVITY >= 1.030 (1.005-1.035); URINE UROBILINOGEN 0.2 E.U./dl (0.2-1.0)
[2020-01-31 17:57] LABS: AMP/METHAMP Negative (Negative); BARBITURATES Negative (Negative); BENZODIAZEPINES POSITIVE (Negative); COCAINE Negative (Negative); METHADONE Negative (Negative); OPIATES Negative (Negative); PCP Negative (Negative)
[2020-01-31] MEDS ORDERED: TRAMADOL 50 MG50 MG PO (18:07)
[2020-01-31] MEDS ORDERED: ONDANSETRON ODT8 MG PO (18:07)
[2020-01-31] MEDS ORDERED: PRILOSEC OTC20 MG PO (18:07)
[2020-01-31] MEDS ORDERED: PROZAC20 MG PO (18:11)
[2020-01-31] MEDS ORDERED: VITAMIN D21250 MC1 PO (18:11)
[2020-01-31] MEDS ORDERED: PANTOPRAZOLE SO40 M1 PO (18:11)
[2020-01-31] MEDS ORDERED: SERTRALINE HCL50 MG PO (18:11)
[2020-01-31] MEDS ORDERED: LORAZEPAM 1 MG T1 MG PO (18:11)
[2020-01-31] MEDS ORDERED: PEPCID20 MG PO (18:13)
[2020-01-31 20:25] VITALS: BP 140/77
--- NOTE | 2020-02-02 11:46 | EKG ---
[facility] [place] [address] ELECTROCARDIOGRAM REPORT Name: JE EVANS Room #: [id number] Admission: 01/31/20 Attend Phys: Discharge: 01/31/20 Date of : 79 Report #: [id number] THIS REPORT FOR: cc: Arnie Nick MD, Neal A. MD Couchonnal, Luis F. MD ~ THIS REPORT FOR: //name// [facility] ED Test Date: 2020-01-31 Test Time: 17:19:41 Pat Name: JE EVANS Department: Room: Gender: Radiology Equipment Servicer: vuidryne : 1975 Requested By: Juan C Ragland Order Number: [id number] MD: Gary Fernandez Measurements Intervals Procious Rate: 108 P: 68 SC: 133 QRS: 65 QRSD: 83 T: 53 QT: 383 QTc: 514 Interpretive Statements Sinus tachycardia Biatrial enlargement Compared to ECG 01/02/2020 23:09:21 Atrial abnormality now present Sinus rhythm no longer present Electronically Signed On 02-02-2020 11:45:22 CDT by Gary Fernandez [email or web address] <ELECTRONICALLY SIGNED> By: Gary Fernandez MD 02/02/20 1145 1719 1719 Gary Fernandez MD /EPI
== END 2020-01-31 20:32 | disposition home or self-care (01) ==
LOC: ER 16:53
PROVIDERS: Emergency Medicine
DX: K29.20 Alcoholic gastritis without bleeding (principal); E87.2 Acidosis; F10.10 Alcohol abuse, uncomplicated; R11.2 Nausea with vomiting, unspecified; R19.7 Diarrhea, unspecified; I10 Essential (primary) hypertension; E78.00 Pure hypercholesterolemia, unspecified; F17.210 Nicotine dependence, cigarettes, uncomplicated; Z79.899 Other long term (current) drug therapy; Z88.8 Allergy status to other drugs, medicaments and biological substances; Z91.011 Allergy to milk products; Z90.49 Acquired absence of other specified parts of digestive tract; Y90.9 Presence of alcohol in blood, level not specified

== ENCOUNTER 2020-02-02 07:36 | Emergency (ER) | payer OTHER ==
[~2020-02-02] VITALS: Ht 172.7 cm; Wt 77.1 kg
[~2020-02-02 07:36] MED LIST changes: +ONDANSETRON ODT8 MG PO; +PRILOSEC OTC20 MG PO; +SERTRALINE HCL50 MG PO; +VITAMIN D21250 MC1 PO
[2020-02-02 08:20] LABS: HEMATOCRIT 44.9 % (42.0-52.0); HEMOGLOBIN 14.9 gm/dL (14.0-18.0); MCH 28.6 pg (26.0-34.0); MCHC 33.3 g/dL (28.0-37.0); MCV 85.9 fL (80.0-100.0); RBC 5.23 mil/uL (4.50-6.00); RDW 15.6 % (10.5-14.5); WBC 11.5 thou/uL (4.0-11.0)
[2020-02-02 08:24] LABS: CALCIUM 9.1 mg/dL (8.5-10.1); CREATININE 0.9 mg/dL (0.7-1.3); POTASSIUM 3.4 mmol/L (3.5-5.1)
[2020-02-02 08:30] LABS: ALBUMIN 4.3 g/dL (3.4-5.0); MAGNESIUM 1.7 mg/dL (1.8-2.4); TOTAL BILIRUBIN 0.8 mg/dL (<0.1-1.0); TOTAL PROTEIN 7.5 g/dL (6.4-8.2)
[2020-02-02] MEDS ORDERED: ONDANSETRON ODT8 MG PO (08:43)
[2020-02-02 08:47] VITALS: BP 136/87
== END 2020-02-02 08:48 | disposition home or self-care (01) ==
LOC: ER 07:36
PROVIDERS: Emergency Medicine
DX: R10.33 Periumbilical pain (principal); R11.2 Nausea with vomiting, unspecified; R19.7 Diarrhea, unspecified; F10.120 Alcohol abuse with intoxication, uncomplicated; I10 Essential (primary) hypertension; E78.2 Mixed hyperlipidemia; F32.9 Major depressive disorder, single episode, unspecified; F41.9 Anxiety disorder, unspecified; F17.210 Nicotine dependence, cigarettes, uncomplicated; Z90.49 Acquired absence of other specified parts of digestive tract; Z79.899 Other long term (current) drug therapy; Z88.8 Allergy status to other drugs, medicaments and biological substances; Z91.011 Allergy to milk products; Z91.018 Allergy to other foods; Y90.1 Blood alcohol level of 20-39 mg/100 ml

== ENCOUNTER 2020-02-12 13:31 | Emergency (ER) | payer OTHER ==
[~2020-02-12] VITALS: Ht 172.7 cm; Wt 70.3 kg
[2020-02-12 13:48] LABS: ABSOLUTE NEUTROPHILS 4.7 thou/uL (1.4-8.2); BASOPHILS 1.4 % (0.0-2.0); EOSINOPHILS 2.4 % (0.0-3.0); HEMOGLOBIN 14.1 gm/dL (14.0-18.0); LYMPHOCYTES 33.4 % (24.0-44.0); MCH 28.7 pg (26.0-34.0); MCHC 33.5 g/dL (28.0-37.0); MCV 85.6 fL (80.0-100.0); MONOCYTES 7.3 % (1.0-8.0); PLATELET COUNT 315 thou/uL (150-400); POLYS 55.5 % (36.0-66.0); RBC 4.91 mil/uL (4.50-6.00); RDW 15.7 % (10.5-14.5); WBC 8.4 thou/uL (4.0-11.0)
[2020-02-12] MEDS ORDERED: ZIPRASIDONE HCL40 MG PO (13:48)
[2020-02-12] MEDS ORDERED: DULOXETINE HCL20 MG PO (13:49)
[2020-02-12 13:57] LABS: URINE BILIRUBIN NEGATIVE (Negative); URINE BLOOD NEGATIVE (Negative); URINE CLARITY CLEAR; URINE COLOR YELLOW; URINE GLUCOSE-RANDOM* NEGATIVE (Negative); URINE KETONES NEGATIVE (Negative); URINE LEUKOCYTES-REFLEX NEGATIVE (Negative); URINE NITRITE-REFLEX NEGATIVE (Negative); URINE PROTEIN (DIPSTICK) NEGATIVE (Negative); URINE SPECIFIC GRAVITY <= 1.005 (1.005-1.035); URINE UROBILINOGEN 0.2 E.U./dl (0.2-1.0)
[2020-02-12 13:58] LABS: CALCIUM 8.3 mg/dL (8.5-10.1); CREATININE 0.9 mg/dL (0.7-1.3); POTASSIUM 3.1 mmol/L (3.5-5.1)
[2020-02-12 14:04] LABS: ALBUMIN 4.1 g/dL (3.4-5.0); TOTAL BILIRUBIN 0.3 mg/dL (<0.1-1.0); TOTAL PROTEIN 7.2 g/dL (6.4-8.2)
[2020-02-12] MEDS ORDERED: PEPCID AC20 MG PO (15:01)
[2020-02-12] MEDS ORDERED: CARAFATE1 GM PO (15:01)
[2020-02-12] MEDS ORDERED: ZOFRAN ODT4 MG PO (15:01)
[2020-02-12 15:09] VITALS: BP 121/74
== END 2020-02-12 15:10 | disposition home or self-care (01) ==
LOC: ER 13:31
PROVIDERS: Emergency Medicine
DX: K29.20 Alcoholic gastritis without bleeding (principal); I10 Essential (primary) hypertension; E78.00 Pure hypercholesterolemia, unspecified; F41.9 Anxiety disorder, unspecified; F32.9 Major depressive disorder, single episode, unspecified; F17.210 Nicotine dependence, cigarettes, uncomplicated; Z91.011 Allergy to milk products; Z88.8 Allergy status to other drugs, medicaments and biological substances; Z90.49 Acquired absence of other specified parts of digestive tract